=== PATIENT | male | born 1975 | race Caucasian/White ===

== ENCOUNTER 2017-09-16 21:01 | Inpatient (IN) | payer SELFPAY ==
[~2017-09-16] VITALS: Ht 182.8 cm; Wt 71.3 kg
--- NOTE | ~2017-09-16 | ST ---
[place], [place] EXERCISE STRESS TEST REPORT NAME: [facility]SSAINT [id number] UNIT #: [id number] ROOM: 427 DOCTOR: OUMAR COLMENARES,MARTINA BIRTHDATE: [birth year] DOS: 09/17/2017 LEXISCAN STRESS TEST REASON FOR TEST: Chest pain. PHYSICAL EXAMINATION NECK: Supple. LUNGS: Clear anteriorly. HEART: Regular rhythm. PROTOCOL: Lexiscan protocol. Maximum heart rate ____. Peak blood pressure 120/62. SYMPTOMS: The patient developed mild chest pain, resolved. EKG: Resting EKG showed sinus rhythm. Stress EKG showed no ischemia, no arrhythmias. CONCLUSION: Clinically, the patient had a mild chest pain, resolved. EKG nonischemic. POST-STRESS COMPLICATIONS: None. The patient received a total of 0.4 mg Lexiscan. MARTINA OSEGUERA MD CM:STRESS:EXERCISE STRESS TEST REPORT [id number] MARTINA OSEGUERA MD
--- NOTE | ~2017-09-16 | CON ---
[place], [place] REPORT OF CONSULTATION NAME: CALLY TOUSSAINT UNIT #: [id number] ROOM: 427 DOCTOR: MARTINA OSEGUERA MD BIRTHDATE: [birth year] DOS: 09/17/2017 REASON FOR CONSULTATION: Chest pain. CLINICAL HISTORY: The patient a 41-year-old gentleman with history of coronary artery disease, history of DVT, history of multiple stents, who was admitted for chest pain. Apparently, the patient has history of heart attack x 3, previous cardiac stents, the last stent was around March 2017 in [place] and reports not available. Apparently, the patient came from [place] all the way to [place] by "walking along with his dog." He has not been taking any of his medications for a few months. He complained of midsternal chest pain, intermittent on and off, more at rest than exertion. No radiation, no associated nausea, diaphoresis, or shortness of breath. The pain is intermittent and relieves on its own. No associated shortness of breath or diaphoresis. He is also complaining of some right knee and left wrist pain and his concerned about the DVT due to his history of DVTs. No fever and chills. No nausea, vomiting, diarrhea. No bladder or bowel symptoms. No cough or hemoptysis. The Cardiology is consulted for further recommendations. He was scheduled for a stress test today due to the history of coronary artery disease and his history of previous stents. REVIEW OF SYSTEMS: Review of the 10 systems negative except as mentioned above. PAST MEDICAL HISTORY: 1. Coronary artery disease, history of cardiac stent in 2014, cardiac stent in 2015, cardiac stent in March 2017 at [facility] in [place], [place]. Reports not available. 2. History of DVT with IVC filter per patient. 3. Hypertension. PAST SURGICAL HISTORY: History of right knee surgery long time ago, history of cardiac stents. ALLERGIES: THE PATIENT IS ALLERGIC TO PENICILLIN. SOCIAL HISTORY: The patient does smoke about a pack a day, but does not drink, does not use illicit drugs. FAMILY HISTORY: Father from blood clots in his 40s. Mother had a cancer and . HOME MEDICATIONS: Currently, the patient not take any home medications. PHYSICAL EXAMINATION: VITAL SIGNS: Blood pressure 110/64, pulse ____, respiratory rate is 14. GENERAL: Alert, comfortable, in no acute distress. HEENT: Pupils are round and equal. No jaundice. NECK: Supple, no distended neck veins, no carotid bruit. CHEST: Symmetrical, nontender. LUNGS: Clear to auscultation bilaterally. [place], [place] REPORT OF CONSULTATION NAME: BREANACALLY Mccartney UNIT #: [id number] ROOM: [facility] DOCTOR: OUMAR COLMENARES,ANA ROSAVictorino BIRTHDATE: [birth year] HEART: Regular rhythm, no S3, no palpable thrills. ABDOMEN: Benign, nontender. Bowel sounds normal. EXTREMITIES: Showed no edema. Distal pulses palpable. SKIN: Warm and dry. No cyanosis, no clubbing. RECTAL: Deferred. GENITOURINARY: Deferred. NEUROLOGIC: The patient is alert, oriented. No focal neurologic deficit. MUSCULOSKELETAL: No joint tenderness. The patient had mild tenderness in the right knee. REVIEW OF THE DIAGNOSTIC TESTS: EKG normal sinus rhythm, no acute ST changes. Pertinent labs include hemoglobin at the time of admission was 12.6, today was 13.2, platelets are 292,000. Potassium 3.6, creatinine 0.82 and cardiac troponins are negative. Total cholesterol 215, LDL 149, HDL 35. TSH 2.3, free T4 1.0. Vitamin D, B12, and folic acid levels are normal. IMPRESSION: 1. Chest pain, atypical, myocardial infarction ruled out. 2. History of coronary artery disease, status post multiple stents, the recent stent was in March 2017, details unknown. 3. History of deep venous thrombosis. 4. Mild anemia, stable. 5. History of hypertension, stable. 6. Tobacco smoking. 7. Dyslipidemia. RECOMMENDATIONS: He was scheduled for Lexiscan stress today. I would recommend aspirin 81 mg once daily and low-dose beta blockers, metoprolol 25 mg once daily and also statins, on Zocor 40 mg once daily. I would recommend a social service consult to help him with the placement and also medications. If the stress test is unremarkable, Cardiology will sign off. Medication compliance and risk factor modification to quit smoking was discussed with the patient. His DVT is over a year ago and so I see no indication for any oral anticoagulation at this time. [place], [place] REPORT OF CONSULTATION NAME: CALLY TOUSSAINT UNIT #: [id number] ROOM: 427 DOCTOR: OUMAR COLMENARES,MARTINA BIRTHDATE: [birth year] MARTINA OSEGUERA MD CM:CONSTR:REPORT OF CONSULTATION 1231 09/18/17 0153 interface
--- NOTE | ~2017-09-16 | CON ---
[place], [place] REPORT OF CONSULTATION NAME: CALLY TOUSSAINT [id number] UNIT #: [id number] ROOM: 427 DOCTOR: CORNELIA MCMANUS DPM BIRTHDATE: [birth year] DOS: 09/17/2017 PODIATRY CONSULT SUBJECTIVE: This 41-year-old male is seen as consulted for evaluation of both feet. The patient apparently has been on his feet quite a bit lately. He started walking back to [place] from [place]. He sustained blisters on the bottom of both feet and at the fifth toes bilaterally. He states since he has been off his feet for a day or two, the blisters are resolving nicely. He has very little discomfort in his feet, some little sensitivity when he bears weight. Denies any trauma or injury. The patient has a history of coronary artery disease status post stent placement. He also has a history of DVT. He denies being diabetic. Denies any history of foot surgeries. PAST MEDICAL HISTORY: Positive for coronary artery disease, DVT, hypertension, arthritis of his right knee, recent left wrist injury, history of GA. ALLERGIES: PENICILLIN. CURRENT MEDICATIONS: Include Lovenox, Zofran, Dulcolax, [place] and aspirin. OBJECTIVE: Upon lower extremity physical examination, pedal pulses are palpable. There is no edema appreciated bilaterally. Negative Homans sign noted bilaterally. Skin temp is warm. CFT is less than 2 seconds to all digits. Sensation is grossly intact and symmetrical. Plantar surface of both feet in the area of the second, third and fourth metatarsal has some dry peeling skin and what appears to be an old blister. At this time also the plantar distal portion of both fifth toes appear the same way. There is no open area or break in the skin noted at this time. There is no edema or erythema. No drainage or malodor. No active blisters. No erythema or signs of infection. ASSESSMENT: History of blisters both feet that are improving nicely at this time. History of deep venous thrombosis. PLAN: Consult is performed. I discussed with the patient the blisters are resolved at this time. There are no open areas on either foot. There are no signs of infection. At this time, just recommend an [id number] lotion to his feet on a daily basis. Discussed about wearing proper shoe gear with ambulation. No wound care is needed as there are no open areas and we will follow up with the patient as needed. Thank you for the opportunity to take part in care of this patient. [place], [place] REPORT OF CONSULTATION NAME: CALLY TOUSSAINT UNIT #: [id number] ROOM: [facility] DOCTOR: CORNELIA MCMANUS DPM BIRTHDATE: [birth year] CORNELIA MCMANUS DPM CM:CONSTR:REPORT OF CONSULTATION 1145 09/18/17 0039 interface
[~2017-09-16 21:01] MED LIST: ANAPROX DS550 MG PO; DAYPRO600 M1 PO; DOXYCYCLINE MO100 MG PO; KEFLEX500 MG PO; MEDROL DOSEPAK4 MG PO; ROBAXIN750 MG PO; SKELAXIN800 MG PO; TRAMADOL HCL50 MG PO; VICODIN 5/500 505 MG PO; VICODIN 500 MG-1 TAB PO; VICODIN ES 7501 TAB PO
[2017-09-16 21:02] VITALS: BP 112/70
[2017-09-16 21:35] LABS: BASO # 0.1 10*3/uL (0.0-0.1); BASO % 0.7 % (0.0-1.0); EOS # 0.4 10*3/uL (0.0-0.4); EOS % 3.1 % (1.0-4.0); HEMATOCRIT 38.8 % (42.0-52.0); HEMOGLOBIN 12.6 g/dl (14.0-18.0); LYMPH # 3.2 10*3/uL (1.3-4.4); LYMPH % 27.6 % (27.0-41.0); MEAN CELL VOLUME 86.8 fl (80.0-94.0); MEAN CORPUSCULAR HGB 28.2 pg (27.0-31.0); MEAN CORPUSCULAR HGB CONC 32.5 g/dl (33.0-37.0); MEAN PLATELET VOLUME 8.8 fl (9.6-12.3); MONO # 0.7 10*3/uL (0.1-1.0); MONO % 6.4 % (3.0-9.0); NEUT # 7.1 10*3/uL (2.3-7.9); NEUT % 61.9 % (47.0-73.0); PLATELET COUNT AUTOMATED 277 10*3/uL (130-400); RED BLOOD COUNT 4.47 10*6/uL (4.50-5.90); RED CELL DISTRI WIDTH 13.6 % (0-14.5); WHITE BLOOD COUNT 11.4 10*3/uL (4.8-10.8)
[2017-09-16 21:46] LABS: INTERNATIONAL NORM RATIO 0.9 (2.0-3.5)
[2017-09-16 21:53] LABS: ALBUMIN 3.6 gm/dl (3.1-4.5); ALKALINE PHOSPHATASE 88 U/L (45-117); BUN 12 mg/dl (7-24); CHLORIDE 106 mmol/L (98-107); CREATININE 0.89 mg/dL (0.70-1.30); POTASSIUM 3.7 mmol/L (3.5-5.1); SGOT/AST 12 IU/L (3-35); SGPT/ALT 18 U/L (12-78); SODIUM 141 mmol/L (136-145); TOTAL PROTEIN 6.8 gm/dL (6.4-8.2)
[2017-09-16 21:54] LABS: TROPONIN I < 0.015 ng/ml (<0.045)
[2017-09-16 22:03] VITALS: BP 119/78
[2017-09-16 23:28] VITALS: BP 120/68
[2017-09-16 23:37] VITALS: BP 124/80
[2017-09-17 07:47] LABS: BASO # 0.1 10*3/uL (0.0-0.1); BASO % 0.8 % (0.0-1.0); EOS # 0.3 10*3/uL (0.0-0.4); EOS % 4.3 % (1.0-4.0); HEMATOCRIT 42.2 % (42.0-52.0); HEMOGLOBIN 13.2 g/dl (14.0-18.0); LYMPH # 2.2 10*3/uL (1.3-4.4); LYMPH % 28.5 % (27.0-41.0); MEAN CELL VOLUME 88.3 fl (80.0-94.0); MEAN CORPUSCULAR HGB 27.6 pg (27.0-31.0); MEAN CORPUSCULAR HGB CONC 31.3 g/dl (33.0-37.0); MEAN PLATELET VOLUME 9.5 fl (9.6-12.3); MONO # 0.6 10*3/uL (0.1-1.0); MONO % 7.7 % (3.0-9.0); NEUT # 4.6 10*3/uL (2.3-7.9); NEUT % 58.4 % (47.0-73.0); PLATELET COUNT AUTOMATED 292 10*3/uL (130-400); RED BLOOD COUNT 4.78 10*6/uL (4.50-5.90); RED CELL DISTRI WIDTH 13.8 % (0-14.5); WHITE BLOOD COUNT 7.8 10*3/uL (4.8-10.8)
[2017-09-17 08:00] VITALS: BP 123/72
[2017-09-17 08:18] LABS: BUN 14 mg/dl (7-24); CHLORIDE 109 mmol/L (98-107); CHOLESTEROL 215 mg/dL (<200); CREATININE 0.82 mg/dL (0.70-1.30); FREE T4 1.04 ng/dl (0.76-1.46); HDL CHOLESTEROL 35 mg/dl (40-60); LDL CHOLESTEROL 149 mg/dL (9-159); POTASSIUM 3.6 mmol/L (3.5-5.1); SODIUM 142 mmol/L (136-145); TRIGLYCERIDES 156 mg/dl (<150); VLDL CHOLESTEROL 31 mg/dL (6-40)
[2017-09-17 08:52] LABS: VITAMIN D, 25-HYDROXY 40.4 ng/mL (30-100)
[2017-09-17 12:00] VITALS: BP 131/71
[2017-09-17 16:00] VITALS: BP 122/64
[2017-09-17 20:00] VITALS: BP 108/66
[2017-09-18] VITALS: BP 110/62
[2017-09-18 07:03] LABS: BASO # 0.1 10*3/uL (0.0-0.1); BASO % 1.2 % (0.0-1.0); EOS # 0.4 10*3/uL (0.0-0.4); EOS % 5.8 % (1.0-4.0); HEMATOCRIT 42.9 % (42.0-52.0); HEMOGLOBIN 13.2 g/dl (14.0-18.0); LYMPH # 2.1 10*3/uL (1.3-4.4); LYMPH % 31.1 % (27.0-41.0); MEAN CELL VOLUME 90.5 fl (80.0-94.0); MEAN CORPUSCULAR HGB 27.8 pg (27.0-31.0); MEAN CORPUSCULAR HGB CONC 30.8 g/dl (33.0-37.0); MEAN PLATELET VOLUME 9.3 fl (9.6-12.3); MONO # 0.5 10*3/uL (0.1-1.0); NEUT # 3.6 10*3/uL (2.3-7.9); NEUT % 53.8 % (47.0-73.0); PLATELET COUNT AUTOMATED 284 10*3/uL (130-400); RED BLOOD COUNT 4.74 10*6/uL (4.50-5.90); RED CELL DISTRI WIDTH 13.7 % (0-14.5); WHITE BLOOD COUNT 6.8 10*3/uL (4.8-10.8)
[2017-09-18 07:28] LABS: ALBUMIN 3.2 gm/dl (3.1-4.5); ALKALINE PHOSPHATASE 75 U/L (45-117); BUN 16 mg/dl (7-24); CHLORIDE 107 mmol/L (98-107); CREATININE 0.94 mg/dL (0.70-1.30); POTASSIUM 4.3 mmol/L (3.5-5.1); SGOT/AST 8 IU/L (3-35); SGPT/ALT 14 U/L (12-78); SODIUM 141 mmol/L (136-145); TOTAL PROTEIN 6.2 gm/dL (6.4-8.2)
[2017-09-18 08:00] VITALS: BP 112/67
[2017-09-18] MEDS ORDERED: SIMVASTATIN40 MG PO (10:41)
[2017-09-18] MEDS ORDERED: LISINOPRIL2.5 MG PO (10:41)
[2017-09-18] MEDS ORDERED: CLOPIDOGREL75 MG PO (10:41)
[2017-09-18] MEDS ORDERED: KNEE SUPPORT1 EACH MC (10:41)
[2017-09-18] MEDS ORDERED: ASPIRIN ADULT L81 M2 PO (10:41)
[2017-09-18] MEDS ORDERED: METOPROLOL SUCC25 M2 PO (10:41)
[2017-09-18 12:00] VITALS: BP 115/50
== END 2017-09-18 14:10 | disposition home or self-care (01) | DRG 880 ==
LOC: ED 21:01 → EDHOLD 22:34 → 4E 22:34
PROVIDERS: Family Medicine; Internal Medicine; Student in an Organized Health Care Education/Training Program
PROC: 4A02XM4 Measurement of Cardiac Total Activity, External Approach (ICD-10-PCS; principal; 2017-09-17)
PROC: 3E073KZ Introduction of Other Diagnostic Substance into Coronary Artery, Percutaneous Approach (ICD-10-PCS; principal; 2017-09-17)
DX: F41.9 Anxiety disorder, unspecified (principal); E87.8 Other disorders of electrolyte and fluid balance, not elsewhere classified; D68.59 Other primary thrombophilia; E88.09 Other disorders of plasma-protein metabolism, not elsewhere classified; I50.22 Chronic systolic (congestive) heart failure; I11.0 Hypertensive heart disease with heart failure; I25.10 Atherosclerotic heart disease of native coronary artery without angina pectoris; D64.9 Anemia, unspecified; D72.829 Elevated white blood cell count, unspecified; E78.5 Hyperlipidemia, unspecified; E78.1 Pure hyperglyceridemia; M13.861 Other specified arthritis, right knee; Z72.0 Tobacco use; Z95.5 Presence of coronary angioplasty implant and graft; I25.2 Old myocardial infarction; Z86.718 Personal history of other venous thrombosis and embolism; Z88.0 Allergy status to penicillin; Z90.89 Acquired absence of other organs; Z71.6 Tobacco abuse counseling; Z80.8 Family history of malignant neoplasm of other organs or systems; Z84.89 Family history of other specified conditions; Z91.14 Patient's other noncompliance with medication regimen

== ENCOUNTER 2017-12-11 11:39 | Emergency (ER) | payer OTHER ==
[~2017-12-11] VITALS: Ht 182.8 cm; Wt 90.7 kg
--- NOTE | ~2017-12-11 | EKG ---
[place], [place] ELECTROCARDIOGRAM REPORT NAME: CALLY TOUSSAINT UNIT #: [id number] ROOM: DOCTOR: EPIPHANY DRAFT REPORT BIRTHDATE: [birth year] [facility] Test Date: 2017-12-11 Test Time: 12:17:33 Pat Name: CALLY TOUSSAINT Department: ER Room: Gender: M Green Feed Attendant: Wellington England : 1975 Requested By: HÉCTOR PEÑA Order Number: [id number] Reading MD: Winsome Maddox MD Measurements Intervals [place] Rate: 78 P: 58 PA: 187 QRS: 70 QRSD: 92 T: -12 QT: 421 QTc: 480 Interpretive Statements Sinus rhythm Borderline ST elevation, anterior leads Electronically Signed On 12-12-2017 12:26:11 PDT by Winsome Maddox MD CM:EKGRPT:ELECTROCARDIOGRAM REPORT 1217 1226 HÉCTOR TRIPATHI DRAFT REPORT HÉCTOR PEÑA MD
[~2017-12-11 11:39] MED LIST changes: +ASPIRIN ADULT L81 M2 PO; +CLOPIDOGREL75 MG PO; +KNEE SUPPORT1 EACH MC; +LISINOPRIL2.5 MG PO; +METOPROLOL SUCC25 M2 PO; +SIMVASTATIN40 MG PO
[2017-12-11 12:17] LABS: BASO # 0.1 10*3/uL (0.0-0.1); EOS # 0.5 10*3/uL (0.0-0.4); EOS % 5.5 % (1.0-4.0); HEMATOCRIT 39.3 % (42.0-52.0); LYMPH # 2.4 10*3/uL (1.3-4.4); LYMPH % 28.5 % (27.0-41.0); MEAN CELL VOLUME 87.5 fl (80.0-94.0); MEAN CORPUSCULAR HGB CONC 33.1 g/dl (33.0-37.0); MEAN PLATELET VOLUME 9.4 fl (9.6-12.3); MONO # 0.6 10*3/uL (0.1-1.0); MONO % 6.9 % (3.0-9.0); NEUT # 4.8 10*3/uL (2.3-7.9); NEUT % 57.6 % (47.0-73.0); PLATELET COUNT AUTOMATED 296 10*3/uL (130-400); RED BLOOD COUNT 4.49 10*6/uL (4.50-5.90); RED CELL DISTRI WIDTH 13.2 % (0-14.5); WHITE BLOOD COUNT 8.3 10*3/uL (4.8-10.8)
[2017-12-11 12:25] LABS: ACT PARTIAL THROMBO TIME 22.7 SECONDS (20.8-31.5); INTERNATIONAL NORM RATIO 0.9 (2.0-3.5)
[2017-12-11 12:32] LABS: ALBUMIN 3.4 gm/dl (3.1-4.5); ALKALINE PHOSPHATASE 80 U/L (45-117); BUN 15 mg/dl (7-24); CHLORIDE 107 mmol/L (98-107); POTASSIUM 3.8 mmol/L (3.5-5.1); SGOT/AST 28 IU/L (3-35); SGPT/ALT 32 U/L (12-78); SODIUM 139 mmol/L (136-145); TOTAL PROTEIN 6.7 gm/dL (6.4-8.2)
[2017-12-11 12:34] LABS: TROPONIN I < 0.015 ng/ml (<0.045)
[2017-12-11] MEDS ORDERED: CLOPIDOGREL75 MG PO (13:08)
[2017-12-11] MEDS ORDERED: SIMVASTATIN40 MG PO (13:08)
[2017-12-11] MEDS ORDERED: METOPROLOL SUCC25 M2 PO (13:08)
[2017-12-11] MEDS ORDERED: LISINOPRIL2.5 MG PO (13:08)
[2017-12-11] MEDS ORDERED: ASPIRIN ADULT L81 M2 PO (13:08)
== END 2017-12-11 14:29 | disposition home or self-care (01) ==
LOC: ED 11:39
PROVIDERS: Emergency Medicine
DX: M79.89 Other specified soft tissue disorders (principal); R07.89 Other chest pain; I11.0 Hypertensive heart disease with heart failure; I50.9 Heart failure, unspecified; I25.2 Old myocardial infarction; E78.1 Pure hyperglyceridemia; I10 Essential (primary) hypertension; I25.10 Atherosclerotic heart disease of native coronary artery without angina pectoris; F17.210 Nicotine dependence, cigarettes, uncomplicated; Z98.890 Other specified postprocedural states; Z86.718 Personal history of other venous thrombosis and embolism; Z79.899 Other long term (current) drug therapy; Z88.0 Allergy status to penicillin

== ENCOUNTER 2017-12-20 10:47 | Emergency (ER) | payer OTHER ==
[~2017-12-20] VITALS: Ht 182.8 cm; Wt 90.7 kg
== END 2017-12-20 11:17 | disposition home or self-care (01) ==
LOC: ED 10:47
DX: G89.29 Other chronic pain (principal); M25.561 Pain in right knee; I11.0 Hypertensive heart disease with heart failure; I50.9 Heart failure, unspecified; M25.511 Pain in right shoulder; M25.532 Pain in left wrist; I25.10 Atherosclerotic heart disease of native coronary artery without angina pectoris; E78.1 Pure hyperglyceridemia; I25.2 Old myocardial infarction; F17.210 Nicotine dependence, cigarettes, uncomplicated; Z88.0 Allergy status to penicillin; Z79.82 Long term (current) use of aspirin; Z79.899 Other long term (current) drug therapy

== ENCOUNTER → 2017-12-21 | Outpatient (CLI) | payer OTHER ==
[~2017-12-21] MED LIST changes: +ASPIRIN ADULT L81 M1 PO; +NEURONTIN100 MG PO; +NICOTROL10 MG INH; +SUBOXONE 8 MG-1 EACH SL; +ZOCOR40 MG PO
== END | disposition home or self-care (01) ==
LOC: RESCLI 09:25
DX: M25.511 Pain in right shoulder (principal); I25.119 Atherosclerotic heart disease of native coronary artery with unspecified angina pectoris; G89.29 Other chronic pain; M17.31 Unilateral post-traumatic osteoarthritis, right knee; F17.200 Nicotine dependence, unspecified, uncomplicated; S69.92XD Unspecified injury of left wrist, hand and finger(s), subsequent encounter; X58.XXXD Exposure to other specified factors, subsequent encounter

== ENCOUNTER → 2018-01-27 | Outpatient (CLI) | payer OTHER | END | disposition home or self-care (01) | LOC: RESCLI 08:08 | DX: I25.119 Atherosclerotic heart disease of native coronary artery with unspecified angina pectoris (principal); M17.11 Unilateral primary osteoarthritis, right knee; S69.92XD Unspecified injury of left wrist, hand and finger(s), subsequent encounter; M75.42 Impingement syndrome of left shoulder; M87.039 Idiopathic aseptic necrosis of unspecified carpus; F17.200 Nicotine dependence, unspecified, uncomplicated; Z88.0 Allergy status to penicillin ==

== ENCOUNTER 2018-02-15 09:00 | Inpatient (IN) | payer OTHER ==
[~2018-02-15] VITALS: Ht 182.8 cm; Wt 94.3 kg
--- NOTE | ~2018-02-15 | EKG ---
[place], [place] ELECTROCARDIOGRAM REPORT NAME: CALLY TOUSSAINT UNIT #: [id number] ROOM: 411 DOCTOR: DEUCE DRAFT REPORT BIRTHDATE: [birth year] [facility] Test Date: 2018-02-15 Test Time: 12:03:37 Pat Name: CALLY TOUSSAINT Department: Room: 411 Gender: M Traffic Analysis Technician: Eli Stacy : 1975 Requested By: LWE JAQUEZ Order Number: [id number] Reading MD: Tavon Harman MD Measurements Intervals [place] Rate: 70 P: 42 DC: 178 QRS: 40 QRSD: 97 T: -40 QT: 415 QTc: 448 Interpretive Statements Sinus rhythm Inferoposterior infarct, age indeterminate Compared to ECG 12/11/2017 12:17:33 No significant change Electronically Signed On 02-15-2018 21:17:28 PST by Tavon Harman MD CM:EKGRPT:ELECTROCARDIOGRAM REPORT 1203 16 LEW NEVILLE DRAFT REPORT LEW JAQUEZ DO
--- NOTE | ~2018-02-15 | EKG ---
[place], [place] ELECTROCARDIOGRAM REPORT NAME: CALLY TOUSSAINT UNIT #: [id number] ROOM: 411 DOCTOR: DEUCE DRAFT REPORT BIRTHDATE: [birth year] [facility] Test Date: 2018-02-15 Test Time: 09:02:32 Pat Name: CALLY TOUSSAINT Department: Room: 411 Gender: M Paper Bag Making Machinist: Eli Stacy : 1975 Requested By: LEW JAQUEZ Order Number: [id number] Reading MD: Tavon Harman MD Measurements Intervals [place] Rate: 84 P: 60 DE: 165 QRS: 56 QRSD: 104 T: -59 QT: 389 QTc: 460 Interpretive Statements Sinus rhythm Inferior infarct, age indeterminate Compared to ECG 12/11/2017 12:17:33 Myocardial infarct finding now present ST (T wave) deviation still present Electronically Signed On 02-15-2018 21:14:11 PST by Tavon Harman MD CM:EKGRPT:ELECTROCARDIOGRAM REPORT 1 13 LEW NEVILLE DRAFT REPORT LEW JAQUEZ DO
--- NOTE | ~2018-02-15 | EKG ---
[place], [place] ELECTROCARDIOGRAM REPORT NAME: CALLY TOUSSAINT UNIT #: [id number] ROOM: 411 DOCTOR: DEUCE DRAFT REPORT BIRTHDATE: [birth year] [facility] Test Date: 2018-02-15 Test Time: 15:18:02 Pat Name: CALLY TOUSSAINT Department: Room: 411 Gender: M Literature Teacher: EKG.PA : 1975 Requested By: LEW JAQUEZ Order Number: [id number] Reading MD: Tavon Harman MD Measurements Intervals [place] Rate: 73 P: 47 [place]: 199 QRS: 45 QRSD: 92 T: -54 QT: 395 QTc: 436 Interpretive Statements Sinus rhythm Inferior infarct, age indeterminate Posterior infarct, old Compared to ECG 12/11/2017 12:17:33 No significant change Electronically Signed On 02-15-2018 21:27:19 PST by Tavon Harman MD CM:EKGRPT:ELECTROCARDIOGRAM REPORT 26 LEW NEVILLE DRAFT REPORT LEW JAQUEZ DO
[~2018-02-15 09:00] MED LIST changes: -ASPIRIN ADULT L81 M1 PO; -NEURONTIN100 MG PO; -NICOTROL10 MG INH; -SUBOXONE 8 MG-1 EACH SL; -ZOCOR40 MG PO
[2018-02-15 09:08] VITALS: BP 109/72
[2018-02-15 09:13] LABS: BASO # 0.1 10*3/uL (0.0-0.1); EOS # 0.3 10*3/uL (0.0-0.4); EOS % 4.1 % (1.0-4.0); HEMATOCRIT 43.8 % (42.0-52.0); HEMOGLOBIN 14.6 g/dl (14.0-18.0); LYMPH # 1.9 10*3/uL (1.3-4.4); LYMPH % 22.5 % (27.0-41.0); MEAN CELL VOLUME 86.9 fl (80.0-94.0); MEAN CORPUSCULAR HGB CONC 33.3 g/dl (33.0-37.0); MEAN PLATELET VOLUME 9.3 fl (9.6-12.3); MONO # 0.5 10*3/uL (0.1-1.0); MONO % 6.5 % (3.0-9.0); NEUT # 5.5 10*3/uL (2.3-7.9); NEUT % 65.7 % (47.0-73.0); PLATELET COUNT AUTOMATED 316 10*3/uL (130-400); RED BLOOD COUNT 5.04 10*6/uL (4.50-5.90); RED CELL DISTRI WIDTH 13.2 % (0-14.5); WHITE BLOOD COUNT 8.3 10*3/uL (4.8-10.8)
[2018-02-15 09:22] LABS: ACT PARTIAL THROMBO TIME 20.5 SECONDS (20.8-31.5); INTERNATIONAL NORM RATIO 0.9 (2.0-3.5)
[2018-02-15 09:33] LABS: ALBUMIN 3.5 gm/dl (3.1-4.5); ALKALINE PHOSPHATASE 76 U/L (45-117); BUN 12 mg/dl (7-24); CHLORIDE 109 mmol/L (98-107); CREATININE 1.05 mg/dL (0.70-1.30); LIPASE 302 U/L (73-393); POTASSIUM 4.5 mmol/L (3.5-5.1); SGOT/AST 17 IU/L (3-35); SGPT/ALT 22 U/L (12-78); SODIUM 138 mmol/L (136-145); TOTAL PROTEIN 7.4 gm/dL (6.4-8.2)
[2018-02-15 09:35] VITALS: BP 101/63
[2018-02-15 10:15] VITALS: BP 109/73
[2018-02-15] MEDS ORDERED: ZOCOR40 MG PO (10:47)
[2018-02-15 11:00] VITALS: BP 133/73
[2018-02-15] MEDS ORDERED: ASPIRIN ADULT L81 M1 PO (14:33)
[2018-02-15] MEDS ORDERED: SUBOXONE 8 MG-1 EACH SL (14:34)
[2018-02-15] MEDS ORDERED: NEURONTIN100 MG PO (14:34)
[2018-02-15 16:00] VITALS: BP 156/70
[2018-02-15 20:00] VITALS: BP 105/58
[2018-02-16] VITALS: BP 120/73
[2018-02-16 06:48] LABS: BASO # 0.1 10*3/uL (0.0-0.1); BASO % 0.6 % (0.0-1.0); EOS # 0.6 10*3/uL (0.0-0.4); EOS % 4.1 % (1.0-4.0); HEMATOCRIT 41.1 % (42.0-52.0); HEMOGLOBIN 13.3 g/dl (14.0-18.0); LYMPH # 3.3 10*3/uL (1.3-4.4); LYMPH % 25.2 % (27.0-41.0); MEAN CELL VOLUME 89.2 fl (80.0-94.0); MEAN CORPUSCULAR HGB 28.9 pg (27.0-31.0); MEAN CORPUSCULAR HGB CONC 32.4 g/dl (33.0-37.0); MEAN PLATELET VOLUME 9.7 fl (9.6-12.3); MONO # 0.9 10*3/uL (0.1-1.0); MONO % 6.6 % (3.0-9.0); NEUT # 8.4 10*3/uL (2.3-7.9); NEUT % 63.2 % (47.0-73.0); PLATELET COUNT AUTOMATED 285 10*3/uL (130-400); RED BLOOD COUNT 4.61 10*6/uL (4.50-5.90); RED CELL DISTRI WIDTH 13.1 % (0-14.5); WHITE BLOOD COUNT 13.3 10*3/uL (4.8-10.8)
[2018-02-16 07:11] LABS: CHLORIDE 106 mmol/L (98-107); POTASSIUM 3.9 mmol/L (3.5-5.1); SODIUM 137 mmol/L (136-145)
[2018-02-16 07:36] LABS: ALBUMIN 3.6 gm/dl (3.1-4.5); ALKALINE PHOSPHATASE 74 U/L (45-117); BUN 18 mg/dl (7-24); CHOLESTEROL 153 mg/dL (<200); CREATININE 1.05 mg/dL (0.70-1.30); FREE T4 1.13 ng/dl (0.76-1.46); HDL CHOLESTEROL 31 mg/dl (40-60); LDL CHOLESTEROL 92 mg/dL (9-159); PHOSPHOROUS 4.5 mg/dL (2.5-4.9); SGOT/AST 13 IU/L (3-35); SGPT/ALT 18 U/L (12-78); TOTAL PROTEIN 6.7 gm/dL (6.4-8.2); TRIGLYCERIDES 150 mg/dl (<150); VLDL CHOLESTEROL 30 mg/dL (6-40)
[2018-02-16 07:40] LABS: VITAMIN D, 25-HYDROXY 32.2 ng/mL (30-100)
[2018-02-16 08:00] VITALS: BP 105/61
[2018-02-16 12:00] VITALS: BP 117/67
[2018-02-16] MEDS ORDERED: NICOTROL10 MG INH (16:04)
[2018-02-16] MEDS ORDERED: CLOPIDOGREL75 MG PO (16:04)
[2018-02-16] MEDS ORDERED: ASPIRIN ADULT L81 M1 PO (16:04)
[2018-02-16] MEDS ORDERED: ZOCOR40 MG PO (16:04)
[2018-02-16] MEDS ORDERED: LISINOPRIL2.5 MG PO (16:04)
[2018-02-16] MEDS ORDERED: METOPROLOL SUCC25 M2 PO (16:04)
[2018-02-16] MEDS ORDERED: NEURONTIN100 MG PO (16:04)
== END 2018-02-16 17:30 | disposition home or self-care (01) | DRG 206 ==
LOC: ED 09:00 → EDHOLD 09:53 → 4E 09:53
PROVIDERS: Emergency Medicine; Internal Medicine
DX: M94.0 Chondrocostal junction syndrome [Tietze] (principal); E87.3 Alkalosis; I50.22 Chronic systolic (congestive) heart failure; R74.8 Abnormal levels of other serum enzymes; D72.810 Lymphocytopenia; R79.82 Elevated C-reactive protein (CRP); K21.9 Gastro-esophageal reflux disease without esophagitis; F41.9 Anxiety disorder, unspecified; I25.119 Atherosclerotic heart disease of native coronary artery with unspecified angina pectoris; I11.0 Hypertensive heart disease with heart failure; E78.2 Mixed hyperlipidemia; G89.29 Other chronic pain; F17.210 Nicotine dependence, cigarettes, uncomplicated; M19.90 Unspecified osteoarthritis, unspecified site; R79.89 Other specified abnormal findings of blood chemistry; E66.3 Overweight; E87.8 Other disorders of electrolyte and fluid balance, not elsewhere classified; M25.561 Pain in right knee; Z71.6 Tobacco abuse counseling; Z86.718 Personal history of other venous thrombosis and embolism; I25.2 Old myocardial infarction; Z95.5 Presence of coronary angioplasty implant and graft; Z80.9 Family history of malignant neoplasm, unspecified; Z84.89 Family history of other specified conditions; Z88.0 Allergy status to penicillin; Z91.040 Latex allergy status; Z91.018 Allergy to other foods; Z79.82 Long term (current) use of aspirin; Z79.899 Other long term (current) drug therapy; Z79.02 Long term (current) use of antithrombotics/antiplatelets; Z68.28 Body mass index [BMI] 28.0-28.9, adult

== ENCOUNTER 2018-04-11 18:53 | Inpatient (IN) | payer OTHER ==
[~2018-04-11] VITALS: Ht 182.8 cm; Wt 102.2 kg
--- NOTE | ~2018-04-11 | EKG ---
[place], [place] ELECTROCARDIOGRAM REPORT NAME: CALLY TOUSSAINT UNIT #: [id number] ROOM: 518 DOCTOR: DEUCE DRAFT REPORT BIRTHDATE: [birth year] [facility] Test Date: 2018-04-11 Test Time: 19:22:54 Pat Name: CALLY TOUSSAITN Department: Room: 518 Gender: M Lamp Shade Maker: Susy Braden : 1975 Requested By: LALO BECK Order Number: [id number] Reading MD: Winsome Maddox MD Measurements Intervals [place] Rate: 96 P: 33 [place]: 167 QRS: 23 QRSD: 96 T: -40 QT: 359 QTc: 454 Interpretive Statements Sinus rhythm Probable left atrial enlargement Possible Inferior infarct, age indeterminate Compared to ECG 02/15/2018 15:18:02 No significant changes Electronically Signed On 04-15-2018 9:33:34 PST by Winsome Maddox MD CM:EKGRPT:ELECTROCARDIOGRAM REPORT 21 LALO BECK EPIPHANY DRAFT REPORT LALO BECK
[2018-04-11 18:53] VITALS: BP 137/89
[~2018-04-11 18:53] MED LIST changes: +ASPIRIN ADULT L81 M1 PO; +NEURONTIN100 MG PO; +NICOTROL10 MG INH; +SUBOXONE 8 MG-1 EACH SL; +ZOCOR40 MG PO
[2018-04-11 19:36] LABS: HEMOGLOBIN 14.9 g/dl (14.0-18.0); MEAN CELL VOLUME 85.1 fl (80.0-94.0); MEAN CORPUSCULAR HGB 28.8 pg (27.0-31.0); MEAN CORPUSCULAR HGB CONC 33.9 g/dl (33.0-37.0); MEAN PLATELET VOLUME 9.3 fl (9.6-12.3); PLATELET COUNT AUTOMATED 246 10*3/uL (130-400); RED BLOOD COUNT 5.17 10*6/uL (4.50-5.90); WHITE BLOOD COUNT 19.6 10*3/uL (4.8-10.8)
[2018-04-11 19:54] LABS: ALBUMIN 3.7 gm/dl (3.1-4.5); ALKALINE PHOSPHATASE 89 U/L (45-117); BUN 14 mg/dl (7-24); CHLORIDE 104 mmol/L (98-107); CREATININE 1.25 mg/dL (0.70-1.30); LIPASE 132 U/L (73-393); POTASSIUM 3.7 mmol/L (3.5-5.1); SGOT/AST 12 IU/L (3-35); SGPT/ALT 22 U/L (12-78); SODIUM 136 mmol/L (136-145); TOTAL PROTEIN 7.8 gm/dL (6.4-8.2); TROPONIN I < 0.015 ng/ml (<0.045)
[2018-04-11 19:57] LABS: ATYPICAL LYMPHS 2 % (0-0); BASOPHILS 1 % (0-1); TOTAL CELLS COUNTED 100 #CELLS
[2018-04-11 19:58] LABS: PLATELET SUFFICIENCY NORMAL (NORMAL)
[2018-04-11 19:59] LABS: ACT PARTIAL THROMBO TIME 20.7 SECONDS (20.8-31.5)
--- NOTE | 2018-04-11 22:32 | NUR ---
PT SITTING UP IN BED. A&O X3, PLEASANT AND COOPERATIVE. MEDICATED PER EMAR. IV HEPARIN INFUSING AT 19.6 ML HR PER EMAR. C/O R GROIN PAIN 8 AT THIS TIME. RESP EASY AND NONLABORED ON RO0M AIR. EDUCATION ON DVTS GIVEN. VERBALIZED UNDERSTANDING.
[2018-04-11 23:09] VITALS: BP 122/78
[2018-04-11 23:40] VITALS: BP 120/71
--- NOTE | 2018-04-11 23:51 | NUR ---
MED REC UP TO DATE PER MED CLAIMS HX & PATIENT RECALL.
--- NOTE | 2018-04-12 00:33 | NUR ---
PO SUBOXONE ADMINISTERED PER ORDER. WILL MONITOR.
--- NOTE | 2018-04-12 02:17 | NUR ---
NICOTINE PATCH APPLIED TO L UPPER ARM.
[2018-04-12 02:30] VITALS: BP 110/65
[2018-04-12 03:58] LABS: BASO # 0.1 10*3/uL (0.0-0.1); BASO % 0.5 % (0.0-1.0); EOS # 0.8 10*3/uL (0.0-0.4); HEMATOCRIT 40.5 % (42.0-52.0); HEMOGLOBIN 13.4 g/dl (14.0-18.0); LYMPH # 4.4 10*3/uL (1.3-4.4); LYMPH % 26.4 % (27.0-41.0); MEAN CELL VOLUME 86.4 fl (80.0-94.0); MEAN CORPUSCULAR HGB 28.6 pg (27.0-31.0); MEAN CORPUSCULAR HGB CONC 33.1 g/dl (33.0-37.0); MEAN PLATELET VOLUME 9.5 fl (9.6-12.3); MONO # 1.3 10*3/uL (0.1-1.0); NEUT % 59.7 % (47.0-73.0); PLATELET COUNT AUTOMATED 230 10*3/uL (130-400); RED BLOOD COUNT 4.69 10*6/uL (4.50-5.90); RED CELL DISTRI WIDTH 13.1 % (0-14.5); WHITE BLOOD COUNT 16.7 10*3/uL (4.8-10.8)
[2018-04-12 04:21] LABS: ALBUMIN 3.2 gm/dl (3.1-4.5); ALKALINE PHOSPHATASE 76 U/L (45-117); BUN 17 mg/dl (7-24); CHLORIDE 106 mmol/L (98-107); CHOLESTEROL 181 mg/dL (<200); CREATININE 1.09 mg/dL (0.70-1.30); HDL CHOLESTEROL 33 mg/dl (40-60); LDL CHOLESTEROL 119 mg/dL (9-159); POTASSIUM 3.9 mmol/L (3.5-5.1); SGOT/AST 12 IU/L (3-35); SGPT/ALT 19 U/L (12-78); SODIUM 138 mmol/L (136-145); TOTAL PROTEIN 6.9 gm/dL (6.4-8.2); TRIGLYCERIDES 147 mg/dl (<150); VLDL CHOLESTEROL 29 mg/dL (6-40)
--- NOTE | 2018-04-12 05:15 | NUR ---
APTT 61.5. NO CHANGE PER HEPARIN PROTOCOL. RATE REMAINS 18U/KG/HR OR 19.6 ML/HR. NEW APTT ORDERED FOR 04/13/18 @ 0530.
--- NOTE | 2018-04-12 06:47 | NUR ---
PER , D/C HEPARIN PROTOCOL ORDER WAS DUE TO DUPLICATE ORDER. INSTRUCTED TO KEEP HEPARIN GTT INFUSING.
--- NOTE | 2018-04-12 10:42 | NUR ---
Crystalizer in to talk to patient. Patient states lives at HOME with ALONE. There are NO steps in the home. Physician: [facility]acy: [facility] Home health services: NONE Patient's level of ADLs: INDEPENDENT Patient has working utilities: YES DME: NONE Follow-up physician's appointment after d/c: WILL BE MADE BY HOSPITALIST NURSE DIRECTOR ON DISCHARGE Does patient want to access PORTAL?: NO Discharge plan PT STATES HE LIVES AT HOME ALONE AND IS INDEPENDENT IN CARE. DENIES ANY HOME NEEDS ON DISCHARGE. PT CAN BE DISCHARGED TO HOME WHEN MEDICALLY STABLE. STATES HE HAS A RIDE ON DISCHARGE. WILL CONTINUE TO FOLLOW.. RICHARD AREVALO
[2018-04-12 12:00] VITALS: BP 113/67
--- NOTE | 2018-04-12 15:35 | NUR ---
FAXED CLINICALS TO INSURANCE PER THEIR REQUEST.
[2018-04-12 16:00] VITALS: BP 117/65
--- NOTE | 2018-04-12 17:54 | NUR ---
PT REQUESTING TO HAVE DOCTOR LOOK AT HIS LEG. RT LEG IS MORE SWOLLEN THEN EARLIER IN THE DAY. PT STATES IT IS ALSO ROCK HARD TO TOUCH. WARM TO TOUCH. CALLED . SAID HE WOULD COME WHEN HE CAN.
[2018-04-12 20:00] VITALS: BP 110/74
--- NOTE | 2018-04-12 22:26 | NUR ---
PATIENT REQUESTED AND RECEIVED PO TYLENOL PER PRN ORDER FOR C/O PAIN IN R LEG RATD 09/21. WILL MONITOR EFFECTIVENESS. CALL LIGHT LEFT IN REACH.
[2018-04-13] VITALS: BP 112/68
--- NOTE | 2018-04-13 01:25 | NUR ---
NOTIFIED OF PATIENT'S C/O PAIN IN R LEG RATED 8/10. TOO SOON FOR TYLENOL PER PRN ORDER. NEW ORDER FOR MOTRIN TO FOLLOW.
--- NOTE | 2018-04-13 02:10 | NUR ---
PATIENT MEDICATED WITH PO MOTRIN PER PRN ORDER FOR C/O PAIN IN R LEG RATED 8/10. STATES EARLIER TYLENOL WAS EFFECTIVE BUT WORE OFF. PATIENT REQUESTING ICE TO PLACE ON LEG TO DECREASE SWELLING. ICE PROVIDED. RN EDUCATED PATIENT ABOUT USE OF ICE AND TO PUT ON/TAKE OFF IN 20 MINUTE INTERVALS. PT ADVISED NOT TO PLACE ICE DIRECTLY TO SKIN. WILL MONITOR. CALL LIGHT LEFT IN REACH.
--- NOTE | 2018-04-13 06:23 | NUR ---
PO SUBOXONE WAS RE-TIMED TO 0600 & 1800 TO BETTER MATCH PATIENT'S HOME SCHEDULE. PO SUBOXONE GIVEN AT THIS TIME. PATIENT RATING PAIN IN RLE 10. WILL MONITOR EFFECTIVENESS. CALL LIGHT LEFT IN REACH.
--- NOTE | 2018-04-13 06:46 | NUR ---
APTT COMING BACK 70.5. NO CHANGE TO BE MADE TO HEPARIN GTT PER PROTOCOL.
[2018-04-13 08:30] VITALS: BP 118/70
--- NOTE | 2018-04-13 08:30 | NUR ---
PT SITTING UP IN BED. RESP-EASY AND REGULAR. HEPARIN INFUSING WITH NO PRLBLEM. NO C/O AT THSI TIME. CALL LIGHT IN REACH. SEE SHIFT ASSESSMENT.
--- NOTE | 2018-04-13 11:05 | NUR ---
RESTING IN BED. NO C/;O AT THIS TIME. CALL RONNIE MEDINA.
--- NOTE | 2018-04-13 12:56 | NUR ---
CALLED DR. TORRES REGARDING PT STATING HE CAN TAKE MONITOR OFF. PER DR. TORRES OK TO DISCONTINUE MONITOR.
--- NOTE | 2018-04-13 13:00 | NUR ---
RESTING IN BED. NO C/O AT THIS TIME. HEPARIN INFUSING WITH NO PROBLEM. CALL LIGHT IN REACH.
[2018-04-13 15:08] LABS: ANTICARDIOLIPIN AB, IGG, QN <9 GPL U/mL (0-14); ANTICARDIOLIPIN AB, IGM, QN 13 MPL U/mL (0-12); CARDIOLIPIN AB IGA 161836 <9 APL U/mL (0-11)
[2018-04-13 16:00] VITALS: BP 135/65
--- NOTE | 2018-04-13 16:00 | NUR ---
RESTING IN BED. RESP-EASY AND REGULAR. NO C/O AT THIS TIME. CALL LIGHT IN REACH. SEE SHIFT ASSESSMENT
--- NOTE | 2018-04-13 17:52 | NUR ---
PT ESCORTED BACK TO ROOM FROM DOWNSTAIRS. PT WENT OUTSIDE TO SMOKE. PT DISCONNECTED HIS HEPARIN DRIP. PT WAS RECONNECTED AND ADVISED TO NOT TO LEAVE THE FLOOR. CALL LIGHT IN REACH. HEPARIN INFUSING.
--- NOTE | 2018-04-13 18:55 | NUR ---
TOLERATED ROUTINE SUBOXONE PER ORDER, SEE EMAR. NO C/O AT THSI TIME. CALL LIGHT IN REACH.
--- NOTE | 2018-04-13 19:30 | NUR ---
PATIENT IS AAOX3 WITH EASY AND REGULAR RESPERS ON ROOM AIR. ASSESSMENT IS COMPLETE WITH NO C/O OR S/S OF DISTRESS NOTED AT THIS TIME. PATIENT REMOVED IV IN LEFT WRIST BUT IV IN LEFT ARM IS INTACT AND ASYMPTOMATIC. BED IS LOW, LOCKED, AND CALL LIGHT IS WITHIN REACH. SEE SHIFT ASSESSMENT.
[2018-04-13 20:00] VITALS: BP 133/81
[2018-04-14] VITALS: BP 127/63
[2018-04-14 00:08] LABS: ANTI-THROMBIN III ANTIGEN 98 % (72-124); PROTEIN S, FREE 81 % (57-157); PROTEIN S, TOTAL 86 % (60-150)
[2018-04-14 08:00] VITALS: BP 146/85
[2018-04-14 11:10] LABS: PTT-LA 58.8 sec (0.0-51.9)
[2018-04-14] MEDS ORDERED: XARELTO1 EACH PO (11:41)
[2018-04-14 12:00] VITALS: BP 128/87
[2018-04-14 15:08] LABS: HEXAGONAL PHASE PHOSPHOLIPID 16 sec (0-11); PTT-LA MIX 51.7 sec (0.0-48.9)
[2018-04-14 16:00] VITALS: BP 117/66
--- NOTE | 2018-04-14 18:00 | NUR ---
Discharge instructions reviewed with patient/family. Patient receptive and verbalizes understanding. Follow-up care arranged. Written instructions given to patient/family. Patient ambulated from unit with all personal belongings. He was educated on new medications and follow up visit with Dr. Beck. WINSTON COLUNGA
[2018-04-15 08:14] LABS: LUPUS REFLEX INTERPRETATION Comment: (.)
[2018-04-15 10:24] LABS: INCUBRFX RFX
== END 2018-04-14 18:46 | disposition home or self-care (01) | DRG 300 ==
LOC: ED 18:53 → EDHOLD 22:29 → 5E 22:29
PROVIDERS: Family Medicine; Nurse Practitioner Family; ADMIT Internal Medicine
DX: I82.411 Acute embolism and thrombosis of right femoral vein (principal); R65.10 Systemic inflammatory response syndrome (SIRS) of non-infectious origin without acute organ dysfunction; D72.1 Eosinophilia; D72.810 Lymphocytopenia; D72.9 Disorder of white blood cells, unspecified; E78.5 Hyperlipidemia, unspecified; I82.431 Acute embolism and thrombosis of right popliteal vein; I82.441 Acute embolism and thrombosis of right tibial vein; G62.9 Polyneuropathy, unspecified; F17.210 Nicotine dependence, cigarettes, uncomplicated; J31.0 Chronic rhinitis; M25.561 Pain in right knee; M19.90 Unspecified osteoarthritis, unspecified site; I25.10 Atherosclerotic heart disease of native coronary artery without angina pectoris; I50.9 Heart failure, unspecified; G89.29 Other chronic pain; I11.0 Hypertensive heart disease with heart failure; Z95.5 Presence of coronary angioplasty implant and graft; Z72.89 Other problems related to lifestyle; Z80.8 Family history of malignant neoplasm of other organs or systems; I25.2 Old myocardial infarction; Z88.0 Allergy status to penicillin; Z71.6 Tobacco abuse counseling; Z80.1 Family history of malignant neoplasm of trachea, bronchus and lung

== ENCOUNTER → 2018-05-19 | Outpatient (CLI) | payer OTHER ==
[~2018-05-19] MED LIST changes: +XARELTO1 EACH PO
== END | disposition home or self-care (01) ==
LOC: MRI 05-18 15:00
DX: Z01.818 Encounter for other preprocedural examination (principal); M19.032 Primary osteoarthritis, left wrist; M87.08 Idiopathic aseptic necrosis of bone, other site; M65.88 Other synovitis and tenosynovitis, other site

== ENCOUNTER → 2018-07-25 | Outpatient (CLI) | payer OTHER ==
[2018-07-25 15:36] LABS: BASO # 0.1 10*3/uL (0.0-0.1); BASO % 0.7 % (0.0-1.0); EOS # 0.3 10*3/uL (0.0-0.4); EOS % 2.1 % (1.0-4.0); HEMATOCRIT 39.8 % (42.0-52.0); HEMOGLOBIN 13.2 g/dl (14.0-18.0); LYMPH # 2.1 10*3/uL (1.3-4.4); LYMPH % 17.7 % (27.0-41.0); MEAN CELL VOLUME 87.9 fl (80.0-94.0); MEAN CORPUSCULAR HGB 29.1 pg (27.0-31.0); MEAN CORPUSCULAR HGB CONC 33.2 g/dl (33.0-37.0); MEAN PLATELET VOLUME 9.9 fl (9.6-12.3); MONO # 0.8 10*3/uL (0.1-1.0); MONO % 6.3 % (3.0-9.0); NEUT # 8.7 10*3/uL (2.3-7.9); PLATELET COUNT AUTOMATED 250 10*3/uL (130-400); RED BLOOD COUNT 4.53 10*6/uL (4.50-5.90); RED CELL DISTRI WIDTH 14.2 % (0-14.5); WHITE BLOOD COUNT 11.9 10*3/uL (4.8-10.8)
[2018-07-25 16:08] LABS: ALBUMIN 3.8 gm/dl (3.1-4.5); ALKALINE PHOSPHATASE 81 U/L (45-117); BUN 20 mg/dl (7-24); CHLORIDE 111 mmol/L (98-107); POTASSIUM 4.1 mmol/L (3.5-5.1); SGOT/AST 37 IU/L (3-35); SGPT/ALT 25 U/L (12-78); SODIUM 141 mmol/L (136-145); TOTAL PROTEIN 7.2 gm/dL (6.4-8.2)
[2018-07-26 16:11] LABS: ANTICARDIOLIPIN AB, IGG, QN <9 GPL U/mL (0-14); ANTICARDIOLIPIN AB, IGM, QN 11 MPL U/mL (0-12); CARDIOLIPIN AB IGA 161836 <9 APL U/mL (0-11)
[2018-07-27 06:08] LABS: DILUTE PROTHROMBIN TIME 54.7 sec (0.0-55.0); DPT CONFIRM RATIO 0.95 Ratio (0.00-1.40); LUPUS DRVVT 99.1 sec (0.0-47.0); PROTEIN S-FUNCTIONAL 164525 88 % (63-140); PTT-LA 54.3 sec (0.0-51.9); THROMBIN TIME 15.8 sec (0.0-23.0)
[2018-07-27 07:10] LABS: HEXAGONAL PHASE PHOSPHOLIPID 10 sec (0-11); PTT-LA MIX 49.3 sec (0.0-48.9)
[2018-07-27 08:12] LABS: LUPUS REFLEX INTERPRETATION Comment: (.)
[2018-07-29 02:09] LABS: BETA-2 GLYCOPROTEIN I AB,IGA <9 (0-25); BETA-2 GLYCOPROTEIN I AB,IGG <9 (0-20); BETA-2 GLYCOPROTEIN I AB,IGM <9 (0-32)
[2018-07-29 16:07] LABS: HEXRFX RFX; PTTRFX RFX
== END | disposition home or self-care (01) ==
LOC: RESCLI 11:46
PROVIDERS: Student in an Organized Health Care Education/Training Program
DX: E78.5 Hyperlipidemia, unspecified (principal); I10 Essential (primary) hypertension; M12.561 Traumatic arthropathy, right knee; I82.511 Chronic embolism and thrombosis of right femoral vein; K21.9 Gastro-esophageal reflux disease without esophagitis; F17.200 Nicotine dependence, unspecified, uncomplicated

== ENCOUNTER 2018-12-12 12:12 | Emergency (ER) | payer OTHER ==
[~2018-12-12] VITALS: Ht 182.8 cm; Wt 104.3 kg
[2018-12-12 13:20] LABS: BASO # 0.1 10*3/uL (0.0-0.1); BASO % 0.6 % (0.0-1.0); EOS # 0.3 10*3/uL (0.0-0.4); EOS % 2.7 % (1.0-4.0); HEMATOCRIT 41.6 % (42.0-52.0); HEMOGLOBIN 13.5 g/dl (14.0-18.0); LYMPH % 15.7 % (27.0-41.0); MEAN CORPUSCULAR HGB 28.2 pg (27.0-31.0); MEAN CORPUSCULAR HGB CONC 32.5 g/dl (33.0-37.0); MEAN PLATELET VOLUME 9.8 fl (9.6-12.3); MONO # 0.5 10*3/uL (0.1-1.0); MONO % 4.3 % (3.0-9.0); NEUT # 9.5 10*3/uL (2.3-7.9); NEUT % 76.5 % (47.0-73.0); PLATELET COUNT AUTOMATED 284 10*3/uL (130-400); RED BLOOD COUNT 4.78 10*6/uL (4.50-5.90); WHITE BLOOD COUNT 12.5 10*3/uL (4.8-10.8)
[2018-12-12 13:31] LABS: ACT PARTIAL THROMBO TIME 23.2 SECONDS (20.0-32.1); INTERNATIONAL NORM RATIO 0.9 (2.0-3.5)
[2018-12-12 13:36] LABS: ALBUMIN 3.6 gm/dl (3.1-4.5); ALKALINE PHOSPHATASE 94 U/L (45-117); BUN 11 mg/dl (7-24); CHLORIDE 108 mmol/L (98-107); LIPASE 206 U/L (73-393); POTASSIUM 4.2 mmol/L (3.5-5.1); SGOT/AST 13 IU/L (3-35); SGPT/ALT 17 U/L (12-78); SODIUM 140 mmol/L (136-145); TOTAL PROTEIN 7.4 gm/dL (6.4-8.2); TROPONIN I < 0.015 ng/ml (<0.045)
[2018-12-12] MEDS ORDERED: DOXYCYCLINE100 M3 PO (14:26)
== END 2018-12-12 14:46 | disposition home or self-care (01) ==
LOC: ED 12:12
PROVIDERS: Emergency Medicine
DX: L03.115 Cellulitis of right lower limb (principal); I82.501 Chronic embolism and thrombosis of unspecified deep veins of right lower extremity; I25.10 Atherosclerotic heart disease of native coronary artery without angina pectoris; E78.5 Hyperlipidemia, unspecified; I11.0 Hypertensive heart disease with heart failure; I50.9 Heart failure, unspecified; I25.2 Old myocardial infarction; G89.29 Other chronic pain; G62.9 Polyneuropathy, unspecified; F17.210 Nicotine dependence, cigarettes, uncomplicated; Z88.0 Allergy status to penicillin; Z79.899 Other long term (current) drug therapy; Z79.82 Long term (current) use of aspirin

== ENCOUNTER 2019-01-16 10:44 | Emergency (ER) | payer OTHER ==
[~2019-01-16] VITALS: Ht 182.8 cm; Wt 108.9 kg
[~2019-01-16 10:44] MED LIST changes: +DOXYCYCLINE100 M3 PO
[2019-01-16 12:18] LABS: BASO # 0.1 10*3/uL (0.0-0.1); BASO % 0.7 % (0.0-1.0); EOS # 0.3 10*3/uL (0.0-0.4); EOS % 2.3 % (1.0-4.0); HEMATOCRIT 44.7 % (42.0-52.0); HEMOGLOBIN 14.5 g/dl (14.0-18.0); LYMPH # 2.2 10*3/uL (1.3-4.4); LYMPH % 15.8 % (27.0-41.0); MEAN CELL VOLUME 86.8 fl (80.0-94.0); MEAN CORPUSCULAR HGB 28.2 pg (27.0-31.0); MEAN CORPUSCULAR HGB CONC 32.4 g/dl (33.0-37.0); MEAN PLATELET VOLUME 9.7 fl (9.6-12.3); MONO # 0.6 10*3/uL (0.1-1.0); MONO % 4.3 % (3.0-9.0); NEUT # 10.6 10*3/uL (2.3-7.9); NEUT % 76.5 % (47.0-73.0); PLATELET COUNT AUTOMATED 295 10*3/uL (130-400); RED BLOOD COUNT 5.15 10*6/uL (4.50-5.90); RED CELL DISTRI WIDTH 13.2 % (0-14.5); WHITE BLOOD COUNT 13.8 10*3/uL (4.8-10.8)
[2019-01-16 12:28] LABS: BUN 11 mg/dl (7-24); CHLORIDE 108 mmol/L (98-107); CREATININE 0.91 mg/dL (0.70-1.30); SODIUM 139 mmol/L (136-145)
[2019-01-16 12:29] LABS: INTERNATIONAL NORM RATIO 1.1 (2.0-3.5)
[2019-01-16] MEDS ORDERED: KEFLEX250 MG PO (14:37)
[2019-01-16] MEDS ORDERED: KEFLEX500 M1 PO (14:38)
== END 2019-01-16 14:43 | disposition home or self-care (01) ==
LOC: ED 10:44
PROVIDERS: Nurse Practitioner
DX: L03.115 Cellulitis of right lower limb (principal); I25.2 Old myocardial infarction; I10 Essential (primary) hypertension; E78.00 Pure hypercholesterolemia, unspecified; Z86.718 Personal history of other venous thrombosis and embolism; F17.210 Nicotine dependence, cigarettes, uncomplicated; Z88.0 Allergy status to penicillin; Z79.899 Other long term (current) drug therapy; Z79.82 Long term (current) use of aspirin

== ENCOUNTER 2019-01-28 22:34 | Inpatient (IN) | payer OTHER ==
[~2019-01-28] VITALS: Ht 182.8 cm; Wt 101.9 kg
--- NOTE | ~2019-01-28 | EKG ---
[place], [place] ELECTROCARDIOGRAM REPORT NAME: CALLY TOUSSAINT UNIT #: [id number] ROOM: [facility] DOCTOR: DEUCE DRAFT REPORT BIRTHDATE: [birth year] [facility] Test Date: 2019-01-29 Test Time: 01:29:55 Pat Name: CALLY TOUSSAINT Department: Room: [facility] Gender: M Nail Professional: Kamilah Yañez : 1975 Requested By: SANJUANA HAGAN Order Number: [id number] Reading MD: Ruth Mcgraw MD Measurements Intervals [place] Rate: 90 P: 38 [place]: 193 QRS: 34 QRSD: 99 T: 62 QT: 374 QTc: 458 Interpretive Statements Sinus rhythm Abnormal R-wave progression, early transition Inferior infarct, old Partial missing lead(s): V6 Compared to ECG 12/12/2018 12:55:55 ST (T wave) deviation no longer present Myocardial infarct finding still present Electronically Signed On 01-29-2019 8:51:19 PST by Ruth Mcgraw MD CM:EKGRPT:ELECTROCARDIOGRAM REPORT [id number] SANJUANA TRIPATHI DRAFT REPORT SANJUANA HAGAN MD
--- NOTE | ~2019-01-28 | EKG ---
[place], [place] ELECTROCARDIOGRAM REPORT NAME: CALLY TOUSSAINT UNIT #: [id number] ROOM: [facility] DOCTOR: DEUCE DRAFT REPORT BIRTHDATE: [birth year] [facility] Test Date: 2019-01-29 Test Time: 07:12:33 Pat Name: CALLY TOUSSAINT Department: Room: [place] [address] Gender: M Diesel Mechanic Helper: Eli Stacy : 1975 Requested By: GLORIA SUTHERLAND Order Number: [id number] Reading MD: Ruth Mcgraw MD Measurements Intervals [place] Rate: 90 P: 46 ME: 209 QRS: 50 QRSD: 100 T: 73 QT: 386 QTc: 473 Interpretive Statements Sinus rhythm Borderline prolonged ME interval Abnormal R-wave progression, early transition Inferior infarct, old Compared to ECG 12/12/2018 12:55:55 ST (T wave) deviation no longer present Myocardial infarct finding still present Electronically Signed On 01-29-2019 8:52:07 PST by Ruth Mcgraw MD CM:EKGRPT:ELECTROCARDIOGRAM REPORT [id number] GLORIA SUTHERLAND EPIPHANY DRAFT REPORT GLORIA SUTHERLAND
--- NOTE | ~2019-01-28 | EKG ---
[place], [place] ELECTROCARDIOGRAM REPORT NAME: CALLY TOUSSAINT UNIT #: [id number] ROOM: [facility] DOCTOR: DEUCE DRAFT REPORT BIRTHDATE: [birth year] [facility] Test Date: 2019-01-29 Test Time: 05:03:47 Pat Name: CALLY TOUSSAINT Department: Room: [place] [address] Gender: M Customer Relations Representative: Kamilah Yañez : 1975 Requested By: GLORIA SUTHERLAND Order Number: [id number] Reading MD: Ruth Mcgraw MD Measurements Intervals [place] Rate: 90 P: 39 [place]: 188 QRS: 39 QRSD: 105 T: 69 QT: 389 QTc: 476 Interpretive Statements Sinus rhythm Inferior infarct, old Compared to ECG 12/12/2018 12:55:55 ST (T wave) deviation no longer present Myocardial infarct finding still present Electronically Signed On 01-29-2019 8:52:00 PST by Ruth Mcgraw MD CM:EKGRPT:ELECTROCARDIOGRAM REPORT [id number] [id number] GLORIA SUTHERLAND EPIPHANY DRAFT REPORT GLORIA SUTHERLAND
--- NOTE | ~2019-01-28 | EKG ---
[place], [place] ELECTROCARDIOGRAM REPORT NAME: CALLY TOUSSAINT UNIT #: [id number] ROOM: [facility] DOCTOR: DEUCE DRAFT REPORT BIRTHDATE: [birth year] [facility] Test Date: 2019-01-29 Test Time: 10:55:55 Pat Name: CALLY TOUSSAINT Department: Room: [place] [address] Gender: M Bowling Alley Manager: : 1975 Requested By: GLORIA SUTHERLAND Order Number: [id number] Reading MD: Ruth Mcgraw MD Measurements Intervals [place] Rate: 87 P: 41 [place]: 191 QRS: 35 QRSD: 95 T: 56 QT: 382 QTc: 460 Interpretive Statements Sinus rhythm Abnormal R-wave progression, early transition Inferior infarct, old Compared to ECG 12/12/2018 12:55:55 ST (T wave) deviation no longer present Myocardial infarct finding still present Electronically Signed On 01-29-2019 8:52:11 PST by Ruth Mcgraw MD CM:EKGRPT:ELECTROCARDIOGRAM REPORT [id number] GLORIA TRIPATHI DRAFT REPORT GLORIA SUTHERLAND
[~2019-01-28 22:34] MED LIST changes: +KEFLEX250 MG PO; +KEFLEX500 M1 PO
[2019-01-28 22:40] VITALS: BP 129/89
--- NOTE | 2019-01-28 22:52 | NUR ---
PT TO TREATMENT ROOM IN NO ACUTE DISTRESS, ASSESSMENT COMPLETE, LAB AT BEDSIDE TO DRAW LABS ORDERED, PT WAS EVALUATED BY MD AT TRIAGE
[2019-01-28 23:00] LABS: BASO # 0.1 10*3/uL (0.0-0.1); BASO % 0.5 % (0.0-1.0); EOS # 0.9 10*3/uL (0.0-0.4); EOS % 4.4 % (1.0-4.0); HEMATOCRIT 40.6 % (42.0-52.0); HEMOGLOBIN 13.5 g/dl (14.0-18.0); LYMPH # 3.4 10*3/uL (1.3-4.4); LYMPH % 17.7 % (27.0-41.0); MEAN CELL VOLUME 85.5 fl (80.0-94.0); MEAN CORPUSCULAR HGB 28.4 pg (27.0-31.0); MEAN CORPUSCULAR HGB CONC 33.3 g/dl (33.0-37.0); MEAN PLATELET VOLUME 9.3 fl (9.6-12.3); MONO # 1.1 10*3/uL (0.1-1.0); MONO % 5.5 % (3.0-9.0); NEUT # 13.9 10*3/uL (2.3-7.9); NEUT % 71.5 % (47.0-73.0); PLATELET COUNT AUTOMATED 270 10*3/uL (130-400); RED BLOOD COUNT 4.75 10*6/uL (4.50-5.90); RED CELL DISTRI WIDTH 13.3 % (0-14.5); WHITE BLOOD COUNT 19.4 10*3/uL (4.8-10.8)
[2019-01-28 23:11] LABS: ACT PARTIAL THROMBO TIME 26.1 SECONDS (20.0-32.1); INTERNATIONAL NORM RATIO 0.9 (2.0-3.5)
[2019-01-28 23:16] LABS: ALBUMIN 3.8 gm/dl (3.1-4.5); ALKALINE PHOSPHATASE 91 U/L (45-117); BUN 21 mg/dl (7-24); CHLORIDE 105 mmol/L (98-107); CREATININE 1.29 mg/dL (0.70-1.30); POTASSIUM 3.9 mmol/L (3.5-5.1); SGOT/AST 17 IU/L (3-35); SGPT/ALT 21 U/L (12-78); SODIUM 136 mmol/L (136-145); TOTAL PROTEIN 7.6 gm/dL (6.4-8.2)
--- NOTE | 2019-01-28 23:25 | NUR ---
PT RETURNED FROM XRAY IN NO DISTRESS
--- NOTE | 2019-01-28 23:31 | NUR ---
CLEAN CATCH UA OBTAINED AND SEN TO LAB, CLEAR, YELLOW URINE NOTED, PT TO XRAY ORDERED BY
[2019-01-28 23:34] LABS: BILIRUBIN NEGATIVE (NEGATIVE); BLOOD NEGATIVE (NEGATIVE); CLARITY CLEAR (CLEAR); COLOR YELLOW (YELLOW); GLUCOSE NEGATIVE (NEGATIVE); KETONE NEGATIVE (NEGATIVE); LEUKO ESTERASE NEGATIVE (NEGATIVE); NITRITE NEGATIVE (NEGATIVE); PH 5.5 (5.0-9.0); SPECIFIC GRAVITY >= 1.030 (1.005-1.030); UROBILINOGEN 0.2 E.U./dl (0.2-1.0)
--- NOTE | 2019-01-28 23:42 | NUR ---
PT TO ULTRASOUND IN NO ACUTE DISTRESS ORDERED
[2019-01-28 23:43] LABS: BACTERIA TRACE; MUCOUS 1+
--- NOTE | 2019-01-28 23:55 | NUR ---
PT RETURNED FROM ULTRASOUND IN NO ACUTE DISTRESS, RESTING QUIETLY, CALL AVILA IN REACH
[2019-01-29] VITALS (10 sets, daily range): BP systolic 94–126; BP diastolic 50–76
--- NOTE | 2019-01-29 00:53 | NUR ---
RESIDENT IN TO SEE PT FOR ADMISSION
--- NOTE | 2019-01-29 01:21 | NUR ---
PT HAD A RUN OF VT, PT STATES HE FELT A "FLUTTER, DENIES ANY OTHER COMPLAINTS, MD AT BEDSIDE
--- NOTE | 2019-01-29 01:30 | NUR ---
WELDER 2ND SHIFT IN AT BEDSIDE TO COMPLETE EKG ORDERED
--- NOTE | 2019-01-29 01:57 | NUR ---
CRITICAL LACTIC ACID RECEIVED FROM [facility]EL[facility] IN LAB. OF 2.1 DR GOMEZ MADE AWARE
--- NOTE | 2019-01-29 01:57 | NUR ---
LIDOCAINE GTT STARTED VIA IV PUMP ORDERED SEE EMAR
--- NOTE | 2019-01-29 02:26 | NUR ---
CT COMPLETE ORDERED
--- NOTE | 2019-01-29 02:43 | NUR ---
MRSA SWAB OBTAINED AND SENT TO LAB ORDERED, PT TOLERATED WELL
--- NOTE | 2019-01-29 03:08 | NUR ---
A 43yr old male, admitted to ICCU, under the services of YARITZA Sheikh DO with a diagnosis of CELLULITIS OF RT LEG, HEMATURIA, VENTRICULAR TACHYCARDIA,SEPSIS, HISTORY OF KIDNEY STONES. Chief complaint is pain and swelling of left leg, patient ambulated approximately one mile to arrive in ER. While in ER patient had 15 seconds of Ventricular tachycardia (felt fluttering in chest) and this has been treated with a Lidocaine 100mg bolus and a drip started at 2mg/min. Ultrasound positive for non-occlusive DVT of left popliteal and lower femerol vein. Patient was given Lovenox 1mg/kg SC in ER. Patient also gives a history of a kidney stone "more than 20 years ago". Patient anxious to eat. Patient arrived via stretcher from ER. Monitor applied. Initial assessment completed. Vital signs taken and recorded. See assessment for past medical history, medications and allergies. Patient and/or family oriented to unit. [facility] ICCU visitation policy reviewed. Clothing/patient valuable form completed. DARWIN RODRIGUEZ
--- NOTE | 2019-01-29 03:10 | NUR ---
PT ADMITTED TO ICU WITH RN ON MONITOR, RESP EASY, LIDOCAINE GTT INFUSING VIA IV PUMP WITH NO REDNESS OR SWELLING, BELONGINGS WITH PT
[2019-01-29] MEDS ORDERED: XARELTO20 M1 PO (03:29)
--- NOTE | 2019-01-29 04:00 | NUR ---
PT TAKES SUBOXONE TWICE/DAY FOR OLD "METH USE". PT RELAYED DURING ADMISSION ASSESSMENT THAT HE "SMOKED WEED THIS WEEK, AND WAS TOLD LATER THAT THERE WAS METH IN IT TOO".
--- NOTE | 2019-01-29 05:44 | NUR ---
PT PULLED THE HEP LOCK OUT OF HIS RT ANTECUBITAL "IN MY SLEEP". NEW IV STARTED LEFT WRIST. [facility] CARDIOLOGY ANSWERING SERVICE WAS CALLED WITH PT'S NAME FOR CONSULTATION.
[2019-01-29 06:05] LABS: URINE AMPHETAMINES > 1000 (1000ng/ml); URINE BARBITURATES < 200 (200ng/ml); URINE BENZODIAZEPINES < 200 (200ng/ml); URINE CANNABINOIDS (THC) < 50 (50ng/ml); URINE COCAINE < 300 (300ng/ml); URINE METHADONE < 300 (300ng/ml); URINE OPIATES < 300 (300ng/ml)
[2019-01-29 06:12] LABS: URINE PHENCYCLIDINE < 25 (25ng/ml)
[2019-01-29 06:51] LABS: BASO # 0.1 10*3/uL (0.0-0.1); BASO % 0.5 % (0.0-1.0); EOS # 0.5 10*3/uL (0.0-0.4); EOS % 4.6 % (1.0-4.0); HEMATOCRIT 35.5 % (42.0-52.0); HEMOGLOBIN 11.6 g/dl (14.0-18.0); LYMPH # 2.6 10*3/uL (1.3-4.4); LYMPH % 23.6 % (27.0-41.0); MEAN CELL VOLUME 86.6 fl (80.0-94.0); MEAN CORPUSCULAR HGB 28.3 pg (27.0-31.0); MEAN CORPUSCULAR HGB CONC 32.7 g/dl (33.0-37.0); MEAN PLATELET VOLUME 9.3 fl (9.6-12.3); MONO # 0.7 10*3/uL (0.1-1.0); MONO % 6.2 % (3.0-9.0); NEUT # 7.2 10*3/uL (2.3-7.9); NEUT % 64.7 % (47.0-73.0); PLATELET COUNT AUTOMATED 217 10*3/uL (130-400); RED CELL DISTRI WIDTH 13.5 % (0-14.5); WHITE BLOOD COUNT 11.2 10*3/uL (4.8-10.8)
[2019-01-29 07:07] LABS: BUN 16 mg/dl (7-24); CHLORIDE 110 mmol/L (98-107); CHOLESTEROL 164 mg/dL (<200); CREATININE 0.99 mg/dL (0.70-1.30); FREE T4 1.21 ng/dl (0.76-1.46); HDL CHOLESTEROL 24 mg/dl (40-60); LDL CHOLESTEROL 99 mg/dL (9-159); PHOSPHOROUS 3.1 mg/dL (2.5-4.9); POTASSIUM 3.4 mmol/L (3.5-5.1); SODIUM 140 mmol/L (136-145); TRIGLYCERIDES 205 mg/dl (<150); VLDL CHOLESTEROL 41 mg/dL (6-40)
[2019-01-29 08:37] LABS: VITAMIN D, 25-HYDROXY 24.2 ng/mL (30-100)
--- NOTE | 2019-01-29 09:00 | NUR ---
DR. HERRERA IN THE [facility] TO CHECK IN ON THE PATIENT AND REVIEW PATIENT CONDITION.
--- NOTE | 2019-01-29 10:30 | NUR ---
DR. GAINES IN TO SEE THE PATIENT AND DISCUSS PLAN OF CARE. CTA CHEST ORDERED TO RULE OUT PULMONARY EMBOLUS.
--- NOTE | 2019-01-29 13:30 | NUR ---
DR. HERRERA IN TO TALK TO PATIENT ABOUT CTA RESULT. PATIENT IS AMMENDABLE TO BEING TRANSFERRED TO ANOTHER FACILITY FOR FURTHER CARE.
--- NOTE | 2019-01-29 14:40 | NUR ---
SPOKE TO DR. HERRERA ABOUT PATIENT TRANSFER. DR. GEORGE IS THE ACCEPTING PHYSICIAN AT [facility]. AWAITING CALL FROM [facility] FOR BED ASSIGNMENT.
[2019-01-29] MEDS ORDERED: ATORVASTATIN CA40 M1 PO (16:39)
[2019-01-29] MEDS ORDERED: VITAMIN D32000 UNI1 PO (16:39)
[2019-01-29] MEDS ORDERED: ASPIRIN ADULT L81 M2 PO (16:39)
[2019-01-29] MEDS ORDERED: METOPROLOL SUCC25 M2 PO (16:39)
--- NOTE | 2019-01-29 16:57 | NUR ---
NURSE TO NURSE REPORT GIVEN TO JOSEPHINE DOSHI FROM [facility]. AWAITING TRANSPORT TO ARRIVE.
--- NOTE | 2019-01-29 17:35 | NUR ---
PATIENT TAKEN OFF THE FLOOR VIA STRETCHER BY [facility].
== END 2019-01-29 18:08 | disposition short-term general hospital (02) | DRG 720 ==
LOC: ED 22:34 → EDHOLD 01-29 01:45 → ICCU 01-29 01:56
PROVIDERS: Emergency Medicine Emergency Medical Services; Internal Medicine; ADMIT Internal Medicine
DX: A41.9 Sepsis, unspecified organism (principal); I26.99 Other pulmonary embolism without acute cor pulmonale; I82.432 Acute embolism and thrombosis of left popliteal vein; R65.20 Severe sepsis without septic shock; L03.115 Cellulitis of right lower limb; I47.2 Ventricular tachycardia; D64.9 Anemia, unspecified; E83.42 Hypomagnesemia; R73.9 Hyperglycemia, unspecified; I25.10 Atherosclerotic heart disease of native coronary artery without angina pectoris; E78.5 Hyperlipidemia, unspecified; G62.9 Polyneuropathy, unspecified; E66.9 Obesity, unspecified; F15.10 Other stimulant abuse, uncomplicated; I11.0 Hypertensive heart disease with heart failure; I50.9 Heart failure, unspecified; I82.412 Acute embolism and thrombosis of left femoral vein; G89.29 Other chronic pain; R31.9 Hematuria, unspecified; F17.210 Nicotine dependence, cigarettes, uncomplicated; M19.90 Unspecified osteoarthritis, unspecified site; E87.6 Hypokalemia; E87.8 Other disorders of electrolyte and fluid balance, not elsewhere classified; E83.41 Hypermagnesemia; Z68.30 Body mass index [BMI] 30.0-30.9, adult; Z71.6 Tobacco abuse counseling; Z87.442 Personal history of urinary calculi; Z86.718 Personal history of other venous thrombosis and embolism; I25.2 Old myocardial infarction; Z95.5 Presence of coronary angioplasty implant and graft; Z80.8 Family history of malignant neoplasm of other organs or systems; Z84.89 Family history of other specified conditions; Z88.0 Allergy status to penicillin; Z79.01 Long term (current) use of anticoagulants; Z79.899 Other long term (current) drug therapy; Z79.02 Long term (current) use of antithrombotics/antiplatelets; Z79.82 Long term (current) use of aspirin

== ENCOUNTER → 2019-02-07 | Outpatient (CLI) | payer OTHER ==
[~2019-02-07] MED LIST changes: +ATORVASTATIN CA40 M1 PO; +VITAMIN D32000 UNI1 PO; +XARELTO20 M1 PO
== END | disposition home or self-care (01) ==
LOC: RESCLI 14:02
DX: I82.511 Chronic embolism and thrombosis of right femoral vein (principal); L03.116 Cellulitis of left lower limb; E78.5 Hyperlipidemia, unspecified; I10 Essential (primary) hypertension; Z72.0 Tobacco use; Z71.6 Tobacco abuse counseling; Z79.899 Other long term (current) drug therapy; Z88.0 Allergy status to penicillin

== ENCOUNTER → 2019-02-22 | Outpatient (CLI) | payer OTHER ==
[2019-02-22 11:04] LABS: BASO # 0.1 10*3/uL (0.0-0.1); BASO % 0.7 % (0.0-1.0); EOS # 0.5 10*3/uL (0.0-0.4); EOS % 4.4 % (1.0-4.0); HEMATOCRIT 40.3 % (42.0-52.0); HEMOGLOBIN 12.8 g/dl (14.0-18.0); LYMPH # 2.4 10*3/uL (1.3-4.4); LYMPH % 21.8 % (27.0-41.0); MEAN CORPUSCULAR HGB 28.3 pg (27.0-31.0); MEAN CORPUSCULAR HGB CONC 31.8 g/dl (33.0-37.0); MEAN PLATELET VOLUME 9.8 fl (9.6-12.3); MONO # 0.7 10*3/uL (0.1-1.0); MONO % 6.2 % (3.0-9.0); NEUT # 7.2 10*3/uL (2.3-7.9); NEUT % 66.5 % (47.0-73.0); PLATELET COUNT AUTOMATED 291 10*3/uL (130-400); RED BLOOD COUNT 4.53 10*6/uL (4.50-5.90); RED CELL DISTRI WIDTH 13.5 % (0-14.5); WHITE BLOOD COUNT 10.9 10*3/uL (4.8-10.8)
[2019-02-22 11:22] LABS: ALBUMIN 3.3 gm/dl (3.1-4.5); ALKALINE PHOSPHATASE 86 U/L (45-117); BUN 7 mg/dl (7-24); CHLORIDE 109 mmol/L (98-107); CREATININE 0.98 mg/dL (0.70-1.30); POTASSIUM 4.4 mmol/L (3.5-5.1); SGOT/AST 13 IU/L (3-35); SGPT/ALT 18 U/L (12-78); SODIUM 141 mmol/L (136-145); TOTAL PROTEIN 6.9 gm/dL (6.4-8.2)
[2019-02-22 11:23] LABS: BILIRUBIN, DIRECT < 0.1 mg/dL (0.0-0.2)
[2019-02-23 08:09] LABS: HEPATITIS B SURFACE AG Negative (Negative); HEPATITIS C VIRUS ANTIBODY <0.1 s/co (0.0-0.9)
[2019-02-25 15:09] LABS: TB1 Ag VALUE 0.04 IU/mL (.)
== END | disposition home or self-care (01) ==
LOC: LAB 01:11 → RESCLI 01:11
PROVIDERS: Anesthesiology Addiction Medicine
DX: F11.20 Opioid dependence, uncomplicated (principal)

== ENCOUNTER 2019-08-14 11:33 | Emergency (ER) | payer OTHER ==
[2019-08-14 12:41] LABS: BASO # 0.1 10*3/uL (0.0-0.1); BASO % 0.6 % (0.0-1.0); EOS # 0.4 10*3/uL (0.0-0.4); EOS % 2.1 % (1.0-4.0); HEMATOCRIT 45.2 % (42.0-52.0); LYMPH # 1.7 10*3/uL (1.3-4.4); LYMPH % 9.5 % (27.0-41.0); MEAN CELL VOLUME 87.8 fl (80.0-94.0); MEAN CORPUSCULAR HGB 28.5 pg (27.0-31.0); MEAN CORPUSCULAR HGB CONC 32.5 g/dl (33.0-37.0); MEAN PLATELET VOLUME 9.9 fl (9.6-12.3); MONO # 0.9 10*3/uL (0.1-1.0); MONO % 5.4 % (3.0-9.0); NEUT # 14.3 10*3/uL (2.3-7.9); NEUT % 81.9 % (47.0-73.0); PLATELET COUNT AUTOMATED 297 10*3/uL (130-400); RED BLOOD COUNT 5.15 10*6/uL (4.50-5.90); RED CELL DISTRI WIDTH 13.5 % (0-14.5); WHITE BLOOD COUNT 17.4 10*3/uL (4.8-10.8)
[2019-08-14 12:52] LABS: ALBUMIN 3.5 gm/dl (3.1-4.5); ALKALINE PHOSPHATASE 116 U/L (45-117); BUN 12 mg/dl (7-24); CHLORIDE 109 mmol/L (98-107); CREATININE 0.99 mg/dL (0.70-1.30); POTASSIUM 4.4 mmol/L (3.5-5.1); SGOT/AST 24 IU/L (3-35); SGPT/ALT 34 U/L (12-78); SODIUM 138 mmol/L (136-145); TOTAL PROTEIN 7.3 gm/dL (6.4-8.2)
== END 2019-08-14 15:50 | disposition short-term general hospital (02) ==
LOC: ED 11:33
PROVIDERS: Emergency Medicine
DX: M00.861 Arthritis due to other bacteria, right knee (principal); I10 Essential (primary) hypertension; I25.2 Old myocardial infarction; Z88.0 Allergy status to penicillin; Z87.891 Personal history of nicotine dependence; Z86.718 Personal history of other venous thrombosis and embolism

== ENCOUNTER 2019-08-24 11:33 | Inpatient (IN) | payer OTHER ==
[~2019-08-24] VITALS: Ht 182.8 cm; Wt 107.3 kg
[2019-08-24 11:47] VITALS: BP 139/88
[2019-08-24 11:52] LABS: BASO # 0.1 10*3/uL (0.0-0.1); BASO % 0.5 % (0.0-1.0); EOS # 0.1 10*3/uL (0.0-0.4); EOS % 0.5 % (1.0-4.0); HEMATOCRIT 46.1 % (42.0-52.0); LYMPH # 2.3 10*3/uL (1.3-4.4); LYMPH % 17.6 % (27.0-41.0); MEAN CORPUSCULAR HGB 28.1 pg (27.0-31.0); MEAN CORPUSCULAR HGB CONC 32.3 g/dl (33.0-37.0); MEAN PLATELET VOLUME 8.9 fl (9.6-12.3); MONO # 0.7 10*3/uL (0.1-1.0); NEUT # 10.1 10*3/uL (2.3-7.9); PLATELET COUNT AUTOMATED 462 10*3/uL (130-400); RED CELL DISTRI WIDTH 13.3 % (0-14.5); WHITE BLOOD COUNT 13.2 10*3/uL (4.8-10.8)
[2019-08-24 12:02] LABS: ACT PARTIAL THROMBO TIME 29.9 SECONDS (20.0-32.1); INTERNATIONAL NORM RATIO 1.2 (2.0-3.5)
[2019-08-24 12:08] LABS: ALBUMIN 3.3 gm/dl (3.1-4.5); ALKALINE PHOSPHATASE 103 U/L (45-117); BUN 24 mg/dl (7-24); CHLORIDE 109 mmol/L (98-107); CREATININE 1.27 mg/dL (0.70-1.30); SGOT/AST 22 IU/L (3-35); SGPT/ALT 47 U/L (12-78); SODIUM 139 mmol/L (136-145)
[2019-08-24 12:11] LABS: TROPONIN I < 0.015 ng/ml (<0.045)
--- NOTE | 2019-08-24 12:43 | NUR ---
PT PTOVIDED URINAL.
[2019-08-24 12:50] VITALS: BP 132/83
[2019-08-24 13:12] VITALS: BP 126/85
--- NOTE | 2019-08-24 13:12 | NUR ---
A 43, admitted to , under the services of TRACI Moreno DO with a diagnosis of PALPITATIONS, POLYSUBSTANCE ABUSE. Chief complaint is PALPITATIONS. Patient arrived via ambulatory from ER. Monitor applied. Initial assessment completed. Vital signs taken and recorded. TRACI MORENO DO notified of admission to the unit. Orders received. See assessment for past medical history, medications and allergies. Patient and/or family oriented to unit. [facility] visitation policy reviewed. Clothing/patient valuable form completed. KELLI LAI A
--- NOTE | 2019-08-24 13:30 | NUR ---
IN TO SEE PT.
[2019-08-24 13:31] LABS: URINE AMPHETAMINES > 1000 (1000ng/ml); URINE BARBITURATES < 200 (200ng/ml); URINE BENZODIAZEPINES < 200 (200ng/ml); URINE CANNABINOIDS (THC) > 50 (50ng/ml); URINE COCAINE < 300 (300ng/ml); URINE METHADONE < 300 (300ng/ml); URINE OPIATES < 300 (300ng/ml)
[2019-08-24 13:32] LABS: URINE PHENCYCLIDINE < 25 (25ng/ml)
[2019-08-24 13:33] LABS: BILIRUBIN NEGATIVE (NEGATIVE); BLOOD NEGATIVE (NEGATIVE); CLARITY SL CLOUDY (CLEAR); COLOR YELLOW (YELLOW); GLUCOSE NEGATIVE (NEGATIVE); HYALINE CAST 21-30; KETONE NEGATIVE (NEGATIVE); LEUKO ESTERASE NEGATIVE (NEGATIVE); NITRITE NEGATIVE (NEGATIVE); UROBILINOGEN 0.2 E.U./dl (0.2-1.0)
[2019-08-24] MEDS ORDERED: XARE20MG PO (13:38)
--- NOTE | 2019-08-24 13:39 | NUR ---
MED REC UPDATED VIA CLAIM HISTORY.
--- NOTE | 2019-08-24 13:48 | NUR ---
IN TO SEE PT.
--- NOTE | 2019-08-24 13:59 | NUR ---
PER , DO NOT CALL ID CONSULT UNTIL RECORDS FROM [facility] HAVE BEEN REC'D.
--- NOTE | 2019-08-24 14:20 | NUR ---
AWARE MED REC WAS UPDATED.
--- NOTE | 2019-08-24 15:20 | NUR ---
Nursing screen received and OT orders. Will follow up with the patient for completion of an OT evaluation. Thank you. Andria Yoon, OTR/L
[2019-08-24 16:00] VITALS: BP 120/81
--- NOTE | 2019-08-24 19:30 | NUR ---
PATIENT PULLED OUT HIS IV AND THREW IT AWAY. WILL NOTIFY DOCTOR.
[2019-08-24 20:00] VITALS: BP 127/75
--- NOTE | 2019-08-24 21:13 | NUR ---
INFORMED THAT PATIENT PULLED OUT IV STATED THAT IT HURT AND DIDNT WANT IT D/T NOT RECEIVING ANYTHING VIA IV. EDUCATION PROVIDED INFORMED THAT HE PREFER TO HAVE ONE INCASE OF AN EMERGENCY, PATIENT REFUSED. DOCTOR STATED OK, WE'LL TRY TOMORROW. ALSO INFORMED THAT PATIENT IS REQUESTING NICOTINE PATCH, STATED OK.
[2019-08-25] VITALS: BP 116/83
--- NOTE | 2019-08-25 02:10 | NUR ---
MADE AWARE THAT PATIENT HAS REQUESTED TO LEAVE AMA EVEN AFTER EDUCATION AND INFORMED IN HIS BEST INTEREST TO STAY, ASKED PATIENT IF HE WOULD LIKE TO SEE DOCTOR PRIOR TO LEAVING, STATED NO HE ALREADY MADE HIS MIND UP. ATATED OK.
--- NOTE | 2019-08-25 02:11 | NUR ---
PATIENT REFUSED MEDICATED IN PHARMACY. STATED THAT HE WASNT GOING TO TAKE THE MEDICATION THAT HE DIDNT WANT IT AND TO GIVE IT TO SOMEONE ELSE SINCE IT WAS EXPENSIVE.
== END 2019-08-25 02:11 | disposition left against medical advice (07) | DRG 812 ==
LOC: ED 11:33 → EDHOLD 12:31 → 4E 12:56
PROVIDERS: Emergency Medicine; Family Medicine; ADMIT Family Medicine
DX: T43.621A Poisoning by amphetamines, accidental (unintentional), initial encounter (principal); R00.2 Palpitations; D72.829 Elevated white blood cell count, unspecified; D47.3 Essential (hemorrhagic) thrombocythemia; E87.8 Other disorders of electrolyte and fluid balance, not elsewhere classified; R73.9 Hyperglycemia, unspecified; E83.41 Hypermagnesemia; I10 Essential (primary) hypertension; F17.210 Nicotine dependence, cigarettes, uncomplicated; D68.59 Other primary thrombophilia; M00.9 Pyogenic arthritis, unspecified; E78.5 Hyperlipidemia, unspecified; I25.10 Atherosclerotic heart disease of native coronary artery without angina pectoris; E66.9 Obesity, unspecified; F19.10 Other psychoactive substance abuse, uncomplicated; Z53.29 Procedure and treatment not carried out because of patient's decision for other reasons; Z71.6 Tobacco abuse counseling; Z86.718 Personal history of other venous thrombosis and embolism; Z79.01 Long term (current) use of anticoagulants; Z86.711 Personal history of pulmonary embolism; I25.2 Old myocardial infarction; Z95.5 Presence of coronary angioplasty implant and graft; Z88.0 Allergy status to penicillin; Z87.442 Personal history of urinary calculi; Z68.32 Body mass index [BMI] 32.0-32.9, adult; Z80.9 Family history of malignant neoplasm, unspecified; Z83.2 Family history of diseases of the blood and blood-forming organs and certain disorders involving the immune mechanism

== ENCOUNTER → 2019-09-05 | Outpatient (CLI) | payer OTHER ==
[~2019-09-05] MED LIST changes: +XARE20MG PO
== END | disposition home or self-care (01) ==
LOC: RESCLI 01:12
DX: G89.29 Other chronic pain (principal); M17.31 Unilateral post-traumatic osteoarthritis, right knee; I25.119 Atherosclerotic heart disease of native coronary artery with unspecified angina pectoris; M17.11 Unilateral primary osteoarthritis, right knee; M87.039 Idiopathic aseptic necrosis of unspecified carpus; I21.9 Acute myocardial infarction, unspecified; I10 Essential (primary) hypertension; I25.2 Old myocardial infarction; E78.5 Hyperlipidemia, unspecified; I82.511 Chronic embolism and thrombosis of right femoral vein; K21.9 Gastro-esophageal reflux disease without esophagitis; E55.9 Vitamin D deficiency, unspecified; F11.23 Opioid dependence with withdrawal; F15.10 Other stimulant abuse, uncomplicated; M00.9 Pyogenic arthritis, unspecified; F17.200 Nicotine dependence, unspecified, uncomplicated; Z86.711 Personal history of pulmonary embolism; Z79.899 Other long term (current) drug therapy; Z98.890 Other specified postprocedural states; Z95.828 Presence of other vascular implants and grafts; Z88.0 Allergy status to penicillin

== ENCOUNTER → 2019-10-06 | Outpatient (CLI) | payer OTHER | END | disposition home or self-care (01) | LOC: RESCLI 08:53 | DX: M00.9 Pyogenic arthritis, unspecified (principal); G89.29 Other chronic pain; E78.5 Hyperlipidemia, unspecified; I10 Essential (primary) hypertension; F11.10 Opioid abuse, uncomplicated; L23.9 Allergic contact dermatitis, unspecified cause; I82.511 Chronic embolism and thrombosis of right femoral vein; A41.9 Sepsis, unspecified organism ==

== ENCOUNTER 2019-10-10 12:12 | Emergency (ER) | payer OTHER ==
[~2019-10-10] VITALS: Ht 182.8 cm; Wt 129.3 kg
[2019-10-10 13:34] LABS: BASO # 0.1 10*3/uL (0.0-0.1); BASO % 0.4 % (0.0-1.0); EOS # 0.1 10*3/uL (0.0-0.4); EOS % 0.7 % (1.0-4.0); HEMATOCRIT 39.3 % (42.0-52.0); LYMPH # 1.7 10*3/uL (1.3-4.4); LYMPH % 15.4 % (27.0-41.0); MEAN CELL VOLUME 83.1 fl (80.0-94.0); MEAN CORPUSCULAR HGB 26.2 pg (27.0-31.0); MEAN CORPUSCULAR HGB CONC 31.6 g/dl (33.0-37.0); MEAN PLATELET VOLUME 9.2 fl (9.6-12.3); MONO # 0.4 10*3/uL (0.1-1.0); MONO % 3.8 % (3.0-9.0); NEUT # 8.8 10*3/uL (2.3-7.9); NEUT % 79.3 % (47.0-73.0); PLATELET COUNT AUTOMATED 377 10*3/uL (130-400); RED BLOOD COUNT 4.73 10*6/uL (4.50-5.90); RED CELL DISTRI WIDTH 13.4 % (0-14.5); WHITE BLOOD COUNT 11.2 10*3/uL (4.8-10.8)
[2019-10-10 13:47] LABS: ALBUMIN 2.9 gm/dl (3.1-4.5); ALKALINE PHOSPHATASE 95 U/L (45-117); BUN 9 mg/dl (7-24); CHLORIDE 110 mmol/L (98-107); CREATININE 0.79 mg/dL (0.70-1.30); POTASSIUM 3.9 mmol/L (3.5-5.1); SGOT/AST 13 IU/L (3-35); SGPT/ALT 20 U/L (12-78); SODIUM 140 mmol/L (136-145); TOTAL PROTEIN 7.2 gm/dL (6.4-8.2)
== END 2019-10-10 16:22 | disposition left against medical advice (07) ==
LOC: ED 12:12
PROVIDERS: Emergency Medicine
DX: M00.861 Arthritis due to other bacteria, right knee (principal); I25.2 Old myocardial infarction; I10 Essential (primary) hypertension; E78.00 Pure hypercholesterolemia, unspecified; F17.200 Nicotine dependence, unspecified, uncomplicated; Z88.0 Allergy status to penicillin

== ENCOUNTER 2019-10-22 12:10 | Emergency (ER) | payer OTHER ==
[~2019-10-22] VITALS: Ht 182.8 cm; Wt 131.5 kg
[2019-10-22 14:06] LABS: BASO # 0.1 10*3/uL (0.0-0.1); BASO % 0.6 % (0.0-1.0); EOS # 0.1 10*3/uL (0.0-0.4); EOS % 1.1 % (1.0-4.0); HEMATOCRIT 39.1 % (42.0-52.0); LYMPH # 1.7 10*3/uL (1.3-4.4); LYMPH % 13.5 % (27.0-41.0); MEAN CELL VOLUME 83.5 fl (80.0-94.0); MEAN CORPUSCULAR HGB 26.3 pg (27.0-31.0); MEAN CORPUSCULAR HGB CONC 31.5 g/dl (33.0-37.0); MONO # 0.9 10*3/uL (0.1-1.0); MONO % 6.9 % (3.0-9.0); NEUT # 9.5 10*3/uL (2.3-7.9); NEUT % 77.6 % (47.0-73.0); PLATELET COUNT AUTOMATED 332 10*3/uL (130-400); RED BLOOD COUNT 4.68 10*6/uL (4.50-5.90); RED CELL DISTRI WIDTH 14.5 % (0-14.5); WHITE BLOOD COUNT 12.3 10*3/uL (4.8-10.8)
[2019-10-22 14:29] LABS: ALKALINE PHOSPHATASE 95 U/L (45-117); BUN 8 mg/dl (7-24); CHLORIDE 106 mmol/L (98-107); CREATININE 0.96 mg/dL (0.70-1.30); POTASSIUM 4.5 mmol/L (3.5-5.1); SGOT/AST 12 IU/L (3-35); SGPT/ALT 19 U/L (12-78); SODIUM 139 mmol/L (136-145); TOTAL PROTEIN 7.2 gm/dL (6.4-8.2)
== END 2019-10-22 21:29 | disposition short-term general hospital (02) ==
LOC: ED 12:10
PROVIDERS: Emergency Medicine
DX: M00.9 Pyogenic arthritis, unspecified (principal); M19.90 Unspecified osteoarthritis, unspecified site; I25.10 Atherosclerotic heart disease of native coronary artery without angina pectoris; E78.5 Hyperlipidemia, unspecified; Z88.0 Allergy status to penicillin

== ENCOUNTER → 2019-11-07 | Outpatient (CLI) | payer OTHER | END | disposition home or self-care (01) | LOC: RESCLI 01:06 | PROVIDERS: ATTEND Emergency Medicine | DX: M17.11 Unilateral primary osteoarthritis, right knee (principal); G89.29 Other chronic pain; E78.5 Hyperlipidemia, unspecified; I10 Essential (primary) hypertension; F11.10 Opioid abuse, uncomplicated; L23.9 Allergic contact dermatitis, unspecified cause; F17.210 Nicotine dependence, cigarettes, uncomplicated; I82.511 Chronic embolism and thrombosis of right femoral vein; Z79.899 Other long term (current) drug therapy; Z79.82 Long term (current) use of aspirin; Z95.828 Presence of other vascular implants and grafts; Z98.890 Other specified postprocedural states; Z88.0 Allergy status to penicillin ==

== ENCOUNTER → 2020-01-09 | Outpatient (CLI) | payer OTHER ==
[2020-01-09 09:57] LABS: BASO # 0.1 10*3/uL (0.0-0.1); BASO % 0.8 % (0.0-1.0); EOS # 0.5 10*3/uL (0.0-0.4); EOS % 5.7 % (1.0-4.0); HEMATOCRIT 40.7 % (42.0-52.0); LYMPH # 2.1 10*3/uL (1.3-4.4); MEAN CELL VOLUME 83.7 fl (80.0-94.0); MEAN CORPUSCULAR HGB 26.3 pg (27.0-31.0); MEAN CORPUSCULAR HGB CONC 31.4 g/dl (33.0-37.0); MEAN PLATELET VOLUME 9.8 fl (9.6-12.3); MONO # 0.7 10*3/uL (0.1-1.0); MONO % 7.4 % (3.0-9.0); NEUT # 5.4 10*3/uL (2.3-7.9); NEUT % 60.7 % (47.0-73.0); PLATELET COUNT AUTOMATED 310 10*3/uL (130-400); RED BLOOD COUNT 4.86 10*6/uL (4.50-5.90); RED CELL DISTRI WIDTH 15.4 % (0-14.5); WHITE BLOOD COUNT 8.8 10*3/uL (4.8-10.8)
[2020-01-09 10:25] LABS: ALBUMIN 3.2 gm/dl (3.1-4.5); ALKALINE PHOSPHATASE 119 U/L (45-117); BILIRUBIN, DIRECT < 0.1 mg/dL (0.0-0.2); BUN 12 mg/dl (7-24); CHLORIDE 111 mmol/L (98-107); CREATININE 0.99 mg/dL (0.70-1.30); SGOT/AST 14 IU/L (3-35); SGPT/ALT 24 U/L (12-78); SODIUM 140 mmol/L (136-145); TOTAL PROTEIN 7.1 gm/dL (6.4-8.2)
[2020-01-10 07:10] LABS: HEP B CORE AB, IGM Negative (Negative); HEPATITIS B SURFACE AG Negative (Negative); HEPATITIS C VIRUS ANTIBODY 0.1 s/co (0.0-0.9)
[2020-01-12 06:08] LABS: TB1 Ag VALUE 0.02 IU/mL (.)
== END | disposition home or self-care (01) ==
LOC: LAB 09:23
PROVIDERS: ATTEND Registered Nurse Critical Care Medicine
DX: F11.20 Opioid dependence, uncomplicated (principal)

== ENCOUNTER → 2020-02-14 | Outpatient (CLI) | payer OTHER | END | disposition home or self-care (01) | LOC: RESCLI 00:34 | PROVIDERS: ATTEND Internal Medicine | DX: G89.29 Other chronic pain (principal); K21.9 Gastro-esophageal reflux disease without esophagitis; I25.2 Old myocardial infarction; E78.5 Hyperlipidemia, unspecified; I25.119 Atherosclerotic heart disease of native coronary artery with unspecified angina pectoris; F11.23 Opioid dependence with withdrawal; M17.31 Unilateral post-traumatic osteoarthritis, right knee; I82.511 Chronic embolism and thrombosis of right femoral vein; M17.11 Unilateral primary osteoarthritis, right knee; F15.10 Other stimulant abuse, uncomplicated; M87.039 Idiopathic aseptic necrosis of unspecified carpus; I10 Essential (primary) hypertension; E55.9 Vitamin D deficiency, unspecified; E66.01 Morbid (severe) obesity due to excess calories; F17.210 Nicotine dependence, cigarettes, uncomplicated; Z79.899 Other long term (current) drug therapy; Z95.828 Presence of other vascular implants and grafts; Z98.890 Other specified postprocedural states; Z88.0 Allergy status to penicillin; Z23 Encounter for immunization ==

== ENCOUNTER 2020-04-23 07:37 | Inpatient (IN) | payer OTHER ==
[~2020-04-23] VITALS: Ht 182.9 cm; Wt 125.6 kg
[2020-04-23 07:44] VITALS: BP 167/78
[2020-04-23 08:27] LABS: BASO # 0.1 10*3/uL (0.0-0.1); BASO % 0.8 % (0.0-1.0); EOS # 0.5 10*3/uL (0.0-0.4); EOS % 4.8 % (1.0-4.0); HEMATOCRIT 40.5 % (42.0-52.0); LYMPH # 2.2 10*3/uL (1.3-4.4); LYMPH % 19.7 % (27.0-41.0); MEAN CELL VOLUME 84.7 fl (80.0-94.0); MEAN CORPUSCULAR HGB CONC 31.9 g/dl (33.0-37.0); MEAN PLATELET VOLUME 9.6 fl (9.6-12.3); MONO # 0.9 10*3/uL (0.1-1.0); NEUT # 7.4 10*3/uL (2.3-7.9); NEUT % 66.3 % (47.0-73.0); PLATELET COUNT AUTOMATED 259 10*3/uL (130-400); RED BLOOD COUNT 4.78 10*6/uL (4.50-5.90); RED CELL DISTRI WIDTH 14.5 % (0-14.5); WHITE BLOOD COUNT 11.1 10*3/uL (4.8-10.8)
[2020-04-23 08:37] LABS: ACT PARTIAL THROMBO TIME 32.9 SECONDS (20.0-32.1); INTERNATIONAL NORM RATIO 1.2 (2.0-3.5)
[2020-04-23 08:42] LABS: ALBUMIN 3.2 gm/dl (3.1-4.5); ALKALINE PHOSPHATASE 114 U/L (45-117); BUN 15 mg/dl (7-24); CHLORIDE 112 mmol/L (98-107); CREATININE 1.07 mg/dL (0.70-1.30); POTASSIUM 3.8 mmol/L (3.5-5.1); SGOT/AST 14 IU/L (3-35); SGPT/ALT 23 U/L (12-78); SODIUM 140 mmol/L (136-145); TOTAL PROTEIN 6.7 gm/dL (6.4-8.2)
[2020-04-23 11:47] VITALS: BP 132/82
[2020-04-23] MEDS ORDERED: LIPITOR40 MG PO (11:49)
[2020-04-23] MEDS ORDERED: BUPRENORPHINE (11:49)
[2020-04-23] MEDS ORDERED: XARE20MG PO (11:49)
[2020-04-23] MEDS ORDERED: NALOXONE (11:49)
[2020-04-23] MEDS ORDERED: METOPROLOL SUCC25 M2 PO (11:50)
[2020-04-23] MEDS ORDERED: NEURONTIN300 MG PO (11:51)
[2020-04-23] MEDS ORDERED: ASPIRIN81 M1 PO (11:51)
[2020-04-23 13:52] VITALS: BP 134/82
[2020-04-23 15:00] VITALS: BP 153/85
[2020-04-23] MEDS ORDERED: SUBOXONE 8 MG-1 EACH SL (16:03)
[2020-04-23 20:00] VITALS: BP 132/83
[2020-04-24] VITALS: BP 148/85
[2020-04-24 06:38] LABS: BASO # 0.1 10*3/uL (0.0-0.1); BASO % 0.5 % (0.0-1.0); EOS # 0.3 10*3/uL (0.0-0.4); EOS % 2.1 % (1.0-4.0); HEMATOCRIT 38.1 % (42.0-52.0); LYMPH # 2.3 10*3/uL (1.3-4.4); LYMPH % 16.7 % (27.0-41.0); MEAN CELL VOLUME 83.2 fl (80.0-94.0); MEAN CORPUSCULAR HGB 27.5 pg (27.0-31.0); MEAN CORPUSCULAR HGB CONC 33.1 g/dl (33.0-37.0); MEAN PLATELET VOLUME 10.1 fl (9.6-12.3); MONO # 1.1 10*3/uL (0.1-1.0); MONO % 7.8 % (3.0-9.0); NEUT # 9.8 10*3/uL (2.3-7.9); NEUT % 72.5 % (47.0-73.0); PLATELET COUNT AUTOMATED 265 10*3/uL (130-400); RED BLOOD COUNT 4.58 10*6/uL (4.50-5.90); RED CELL DISTRI WIDTH 14.5 % (0-14.5); WHITE BLOOD COUNT 13.5 10*3/uL (4.8-10.8)
[2020-04-24 07:07] LABS: BUN 9 mg/dl (7-24); CHLORIDE 109 mmol/L (98-107); CREATININE 0.81 mg/dL (0.70-1.30); POTASSIUM 3.8 mmol/L (3.5-5.1); SGOT/AST 11 IU/L (3-35); SGPT/ALT 20 U/L (12-78); SODIUM 138 mmol/L (136-145)
[2020-04-24 07:09] LABS: ALKALINE PHOSPHATASE 103 U/L (45-117); TOTAL PROTEIN 6.6 gm/dL (6.4-8.2)
[2020-04-24 08:00] VITALS: BP 149/81
[2020-04-24 12:00] VITALS: BP 140/85
[2020-04-24 16:00] VITALS: BP 144/78
[2020-04-24 20:00] VITALS: BP 128/73
[2020-04-25] VITALS (10 sets, daily range): BP systolic 116–146; BP diastolic 49–86
[2020-04-25 06:42] LABS: BASO # 0.1 10*3/uL (0.0-0.1); BASO % 0.6 % (0.0-1.0); EOS # 0.4 10*3/uL (0.0-0.4); EOS % 3.2 % (1.0-4.0); HEMATOCRIT 40.6 % (42.0-52.0); LYMPH # 2.6 10*3/uL (1.3-4.4); LYMPH % 19.2 % (27.0-41.0); MEAN CELL VOLUME 84.1 fl (80.0-94.0); MEAN CORPUSCULAR HGB 26.9 pg (27.0-31.0); MEAN PLATELET VOLUME 9.8 fl (9.6-12.3); MONO # 1.1 10*3/uL (0.1-1.0); MONO % 8.3 % (3.0-9.0); NEUT # 9.2 10*3/uL (2.3-7.9); NEUT % 68.4 % (47.0-73.0); PLATELET COUNT AUTOMATED 243 10*3/uL (130-400); RED BLOOD COUNT 4.83 10*6/uL (4.50-5.90); RED CELL DISTRI WIDTH 14.7 % (0-14.5); WHITE BLOOD COUNT 13.5 10*3/uL (4.8-10.8)
[2020-04-25 07:02] LABS: BUN 10 mg/dl (7-24); CHLORIDE 107 mmol/L (98-107); POTASSIUM 3.9 mmol/L (3.5-5.1); SODIUM 137 mmol/L (136-145)
[2020-04-26 07:23] LABS: BUN 13 mg/dl (7-24); CHLORIDE 108 mmol/L (98-107); POTASSIUM 3.8 mmol/L (3.5-5.1); SODIUM 140 mmol/L (136-145)
[2020-04-26 08:00] VITALS: BP 123/59
[2020-04-26 08:30] LABS: BASO % 0.2 % (0.0-1.0); EOS % 0.1 % (1.0-4.0); HEMATOCRIT 37.1 % (42.0-52.0); LYMPH # 1.9 10*3/uL (1.3-4.4); LYMPH % 11.8 % (27.0-41.0); MEAN CELL VOLUME 85.7 fl (80.0-94.0); MEAN CORPUSCULAR HGB CONC 31.5 g/dl (33.0-37.0); MEAN PLATELET VOLUME 10.2 fl (9.6-12.3); MONO # 1.2 10*3/uL (0.1-1.0); MONO % 7.2 % (3.0-9.0); NEUT # 12.8 10*3/uL (2.3-7.9); NEUT % 80.3 % (47.0-73.0); PLATELET COUNT AUTOMATED 255 10*3/uL (130-400); RED BLOOD COUNT 4.33 10*6/uL (4.50-5.90); RED CELL DISTRI WIDTH 14.6 % (0-14.5); WHITE BLOOD COUNT 15.9 10*3/uL (4.8-10.8)
[2020-04-26] MEDS ORDERED: PERCOCET 5-3251 EACH PO (11:16)
[2020-04-26] MEDS ORDERED: VITAMIN D350 MC2 PO (11:16)
[2020-04-26 12:00] VITALS: BP 120/62
== END 2020-04-26 13:47 | disposition home health service (06) | DRG 308 ==
LOC: ED 07:37 → EDHOLD 09:47 → 5E 09:47
PROVIDERS: Emergency Medicine; Internal Medicine; Orthopaedic Surgery; ADMIT Family Medicine; ATTEND Family Medicine
PROC: 0QH804Z Insertion of Internal Fixation Device into Right Femoral Shaft, Open Approach (ICD-10-PCS; principal; 2020-04-25)
PROC: 0QPB04Z Removal of Internal Fixation Device from Right Lower Femur, Open Approach (ICD-10-PCS; 2020-04-25)
DX: S72.351A Displaced comminuted fracture of shaft of right femur, initial encounter for closed fracture (principal); I25.10 Atherosclerotic heart disease of native coronary artery without angina pectoris; E78.5 Hyperlipidemia, unspecified; D68.59 Other primary thrombophilia; R73.9 Hyperglycemia, unspecified; F15.10 Other stimulant abuse, uncomplicated; F12.10 Cannabis abuse, uncomplicated; D72.829 Elevated white blood cell count, unspecified; D64.9 Anemia, unspecified; R00.0 Tachycardia, unspecified; E87.8 Other disorders of electrolyte and fluid balance, not elsewhere classified; E83.41 Hypermagnesemia; F17.210 Nicotine dependence, cigarettes, uncomplicated; E44.0 Moderate protein-calorie malnutrition; I10 Essential (primary) hypertension; M21.061 Valgus deformity, not elsewhere classified, right knee; M17.31 Unilateral post-traumatic osteoarthritis, right knee; Z88.0 Allergy status to penicillin; Z95.5 Presence of coronary angioplasty implant and graft; I25.2 Old myocardial infarction; Z86.718 Personal history of other venous thrombosis and embolism; Z79.01 Long term (current) use of anticoagulants; Z80.8 Family history of malignant neoplasm of other organs or systems; Z84.89 Family history of other specified conditions; Z87.442 Personal history of urinary calculi; Z86.711 Personal history of pulmonary embolism; Z79.899 Other long term (current) drug therapy; Z79.82 Long term (current) use of aspirin; W00.0XXA Fall on same level due to ice and snow, initial encounter; Y93.89 Activity, other specified; Y92.89 Other specified places as the place of occurrence of the external cause; Y99.8 Other external cause status; Z20.822 Contact with and (suspected) exposure to COVID-19; Z68.37 Body mass index [BMI] 37.0-37.9, adult

== ENCOUNTER 2020-04-30 13:09 | Emergency (ER) | payer OTHER ==
[~2020-04-30] VITALS: Ht 182.8 cm; Wt 124.7 kg
[~2020-04-30 13:09] MED LIST changes: +ASPIRIN81 M1 PO; +BUPRENORPHINE; +LIPITOR40 MG PO; +NALOXONE; +NEURONTIN300 MG PO; +PERCOCET 5-3251 EACH PO; +VITAMIN D350 MC2 PO
[2020-04-30 13:53] LABS: BASO # 0.1 10*3/uL (0.0-0.1); BASO % 0.6 % (0.0-1.0); EOS # 0.3 10*3/uL (0.0-0.4); EOS % 2.6 % (1.0-4.0); HEMATOCRIT 37.7 % (42.0-52.0); LYMPH # 1.5 10*3/uL (1.3-4.4); LYMPH % 13.1 % (27.0-41.0); MEAN CELL VOLUME 85.7 fl (80.0-94.0); MEAN CORPUSCULAR HGB CONC 31.6 g/dl (33.0-37.0); MEAN PLATELET VOLUME 9.1 fl (9.6-12.3); MONO # 0.7 10*3/uL (0.1-1.0); MONO % 6.6 % (3.0-9.0); NEUT # 8.5 10*3/uL (2.3-7.9); NEUT % 76.7 % (47.0-73.0); PLATELET COUNT AUTOMATED 349 10*3/uL (130-400); RED CELL DISTRI WIDTH 14.6 % (0-14.5); WHITE BLOOD COUNT 11.1 10*3/uL (4.8-10.8)
[2020-04-30 14:08] LABS: ALBUMIN 2.6 gm/dl (3.1-4.5); ALKALINE PHOSPHATASE 96 U/L (45-117); BUN 13 mg/dl (7-24); CHLORIDE 105 mmol/L (98-107); CREATININE 0.88 mg/dL (0.70-1.30); POTASSIUM 4.2 mmol/L (3.5-5.1); SGOT/AST 13 IU/L (3-35); SGPT/ALT 22 U/L (12-78); SODIUM 136 mmol/L (136-145); TOTAL PROTEIN 6.6 gm/dL (6.4-8.2)
[2020-04-30] MEDS ORDERED: PERCOCET 5-3251 EACH PO (16:42)
== END 2020-04-30 16:45 | disposition home or self-care (01) ==
LOC: ED 13:09
PROVIDERS: Nurse Practitioner
DX: G89.18 Other acute postprocedural pain (principal); Z88.0 Allergy status to penicillin; Z79.899 Other long term (current) drug therapy; Z79.82 Long term (current) use of aspirin; Z71.6 Tobacco abuse counseling

== ENCOUNTER → 2020-05-03 | Outpatient (CLI) | payer OTHER | END | disposition home or self-care (01) | LOC: RESCLI 01:33 | PROVIDERS: ATTEND Internal Medicine | DX: M17.31 Unilateral post-traumatic osteoarthritis, right knee (principal); G89.29 Other chronic pain; I25.119 Atherosclerotic heart disease of native coronary artery with unspecified angina pectoris; M87.039 Idiopathic aseptic necrosis of unspecified carpus; E78.5 Hyperlipidemia, unspecified; I82.511 Chronic embolism and thrombosis of right femoral vein; K21.9 Gastro-esophageal reflux disease without esophagitis; E55.9 Vitamin D deficiency, unspecified; F11.10 Opioid abuse, uncomplicated; F15.10 Other stimulant abuse, uncomplicated; I25.2 Old myocardial infarction; E66.01 Morbid (severe) obesity due to excess calories; M21.061 Valgus deformity, not elsewhere classified, right knee; I50.20 Unspecified systolic (congestive) heart failure; I11.0 Hypertensive heart disease with heart failure; F17.210 Nicotine dependence, cigarettes, uncomplicated; S72.351D Displaced comminuted fracture of shaft of right femur, subsequent encounter for closed fracture with routine healing; X58.XXXD Exposure to other specified factors, subsequent encounter; Z79.82 Long term (current) use of aspirin; Z79.899 Other long term (current) drug therapy; Z95.828 Presence of other vascular implants and grafts; Z98.890 Other specified postprocedural states; Z88.0 Allergy status to penicillin ==

== ENCOUNTER → 2020-05-13 | Outpatient (CLI) | payer OTHER | END | disposition home or self-care (01) | LOC: ORTHO 00:19 | PROVIDERS: ATTEND Orthopaedic Surgery | DX: S72.351D Displaced comminuted fracture of shaft of right femur, subsequent encounter for closed fracture with routine healing (principal); M17.11 Unilateral primary osteoarthritis, right knee; X58.XXXD Exposure to other specified factors, subsequent encounter ==

== ENCOUNTER → 2020-07-01 | Outpatient (CLI) | payer OTHER | END | disposition home or self-care (01) | LOC: RAD 13:12 | PROVIDERS: ATTEND Orthopaedic Surgery | DX: M17.11 Unilateral primary osteoarthritis, right knee (principal); M25.461 Effusion, right knee; M25.761 Osteophyte, right knee; S72.351D Displaced comminuted fracture of shaft of right femur, subsequent encounter for closed fracture with routine healing; X58.XXXD Exposure to other specified factors, subsequent encounter ==

== ENCOUNTER → 2020-09-11 | Outpatient (CLI) | payer OTHER | LOC: ORTHO 05:34 | PROVIDERS: ATTEND Orthopaedic Surgery | DX: M17.11 Unilateral primary osteoarthritis, right knee (principal); S72.351D Displaced comminuted fracture of shaft of right femur, subsequent encounter for closed fracture with routine healing; X58.XXXD Exposure to other specified factors, subsequent encounter ==

== ENCOUNTER → 2020-10-30 | Outpatient (CLI) | payer OTHER ==
[~2020-10-30] MED LIST changes: +LISINOPRIL10 M1 PO; +TOPROL XL25 MG PO
== END | disposition home or self-care (01) ==
LOC: ORTHO 00:17
PROVIDERS: ATTEND Orthopaedic Surgery
DX: S72.321D Displaced transverse fracture of shaft of right femur, subsequent encounter for closed fracture with routine healing (principal); Z96.9 Presence of functional implant, unspecified; X58.XXXD Exposure to other specified factors, subsequent encounter

== ENCOUNTER → 2020-11-12 | Outpatient (CLI) | payer OTHER ==
[2020-11-08 13:20] VITALS: BP 136/88
[~2020-11-12] VITALS: Ht 182.8 cm; Wt 126.1 kg
== END | disposition home or self-care (01) ==
LOC: SDC 11-08 14:00 → LAB 01:22 → SDC 01:22 → EDSTATUS 14:00
PROVIDERS: ATTEND Orthopaedic Surgery
DX: Z01.812 Encounter for preprocedural laboratory examination (principal); M17.31 Unilateral post-traumatic osteoarthritis, right knee; Z20.822 Contact with and (suspected) exposure to COVID-19; I25.2 Old myocardial infarction; I10 Essential (primary) hypertension; Z86.718 Personal history of other venous thrombosis and embolism; Z95.5 Presence of coronary angioplasty implant and graft; Z79.899 Other long term (current) drug therapy

== ENCOUNTER → 2020-11-12 | Outpatient (CLI) | payer OTHER ==
[2020-11-12 14:26] LABS: BASO # 0.1 10*3/uL (0.0-0.1); BASO % 1.1 % (0.0-1.0); EOS # 0.7 10*3/uL (0.0-0.4); EOS % 6.9 % (1.0-4.0); HEMATOCRIT 44.4 % (42.0-52.0); LYMPH # 2.3 10*3/uL (1.3-4.4); LYMPH % 22.3 % (27.0-41.0); MEAN CELL VOLUME 86.4 fl (80.0-94.0); MEAN CORPUSCULAR HGB 27.6 pg (27.0-31.0); MEAN PLATELET VOLUME 9.4 fl (9.6-12.3); MONO # 0.6 10*3/uL (0.1-1.0); MONO % 6.2 % (3.0-9.0); NEUT # 6.4 10*3/uL (2.3-7.9); NEUT % 63.1 % (47.0-73.0); PLATELET COUNT AUTOMATED 311 10*3/uL (130-400); RED BLOOD COUNT 5.14 10*6/uL (4.50-5.90); RED CELL DISTRI WIDTH 14.4 % (0-14.5); WHITE BLOOD COUNT 10.2 10*3/uL (4.8-10.8)
[2020-11-12 14:41] LABS: ALBUMIN 3.6 gm/dl (3.1-4.5); ALKALINE PHOSPHATASE 137 U/L (45-117); BUN 9 mg/dl (7-24); CHLORIDE 106 mmol/L (98-107); CHOLESTEROL 221 mg/dL (<200); CREATININE 1.03 mg/dL (0.70-1.30); LDL CHOLESTEROL 148 mg/dL (9-159); POTASSIUM 4.4 mmol/L (3.5-5.1); SGOT/AST 17 IU/L (3-35); SGPT/ALT 34 U/L (12-78); SODIUM 136 mmol/L (136-145); TOTAL PROTEIN 7.5 gm/dL (6.4-8.2); TRIGLYCERIDES 208 mg/dl (<150)
== END ==
LOC: LAB 14:09
PROVIDERS: ATTEND Internal Medicine Cardiovascular Disease
DX: Z01.810 Encounter for preprocedural cardiovascular examination (principal); I25.10 Atherosclerotic heart disease of native coronary artery without angina pectoris; D68.2 Hereditary deficiency of other clotting factors

== ENCOUNTER → 2020-11-20 | Outpatient (CLI) | payer OTHER | END | disposition home or self-care (01) | LOC: CARD 00:20 | PROVIDERS: ATTEND Internal Medicine Cardiovascular Disease | DX: Z01.810 Encounter for preprocedural cardiovascular examination (principal); R94.31 Abnormal electrocardiogram [ECG] [EKG]; I51.7 Cardiomegaly ==

== ENCOUNTER → 2020-12-24 | Outpatient (CLI) | payer OTHER | END | disposition home or self-care (01) | LOC: RESCLI 00:48 | PROVIDERS: ATTEND Internal Medicine | DX: S72.451D Displaced supracondylar fracture without intracondylar extension of lower end of right femur, subsequent encounter for closed fracture with routine healing (principal); I11.0 Hypertensive heart disease with heart failure; I50.20 Unspecified systolic (congestive) heart failure; M17.31 Unilateral post-traumatic osteoarthritis, right knee; I25.119 Atherosclerotic heart disease of native coronary artery with unspecified angina pectoris; M87.039 Idiopathic aseptic necrosis of unspecified carpus; M12.561 Traumatic arthropathy, right knee; I25.2 Old myocardial infarction; E78.5 Hyperlipidemia, unspecified; I82.511 Chronic embolism and thrombosis of right femoral vein; I10 Essential (primary) hypertension; K21.9 Gastro-esophageal reflux disease without esophagitis; E55.9 Vitamin D deficiency, unspecified; E66.01 Morbid (severe) obesity due to excess calories; F11.10 Opioid abuse, uncomplicated; Z96.9 Presence of functional implant, unspecified; Z86.711 Personal history of pulmonary embolism; X58.XXXD Exposure to other specified factors, subsequent encounter ==

== ENCOUNTER → 2020-12-31 | Outpatient (CLI) | payer OTHER ==
[2020-12-31 17:05] LABS: BASO # 0.1 10*3/uL (0.0-0.1); BASO % 0.7 % (0.0-1.0); EOS # 0.7 10*3/uL (0.0-0.4); EOS % 5.1 % (1.0-4.0); HEMATOCRIT 46.3 % (42.0-52.0); LYMPH # 3.1 10*3/uL (1.3-4.4); MEAN CELL VOLUME 85.3 fl (80.0-94.0); MEAN CORPUSCULAR HGB 27.6 pg (27.0-31.0); MEAN CORPUSCULAR HGB CONC 32.4 g/dl (33.0-37.0); MEAN PLATELET VOLUME 9.9 fl (9.6-12.3); MONO # 0.7 10*3/uL (0.1-1.0); MONO % 4.8 % (3.0-9.0); NEUT # 9.3 10*3/uL (2.3-7.9); NEUT % 67.1 % (47.0-73.0); PLATELET COUNT AUTOMATED 358 10*3/uL (130-400); RED BLOOD COUNT 5.43 10*6/uL (4.50-5.90); RED CELL DISTRI WIDTH 13.4 % (0-14.5); WHITE BLOOD COUNT 13.9 10*3/uL (4.8-10.8)
[2020-12-31 17:18] LABS: ACT PARTIAL THROMBO TIME 32.6 SECONDS (20.0-32.1); INTERNATIONAL NORM RATIO 1.1 (2.0-3.5)
[2020-12-31 17:20] LABS: ALBUMIN 3.7 gm/dl (3.1-4.5); ALKALINE PHOSPHATASE 134 U/L (45-117); BUN 10 mg/dl (7-24); CHLORIDE 106 mmol/L (98-107); CREATININE 1.01 mg/dL (0.70-1.30); POTASSIUM 4.1 mmol/L (3.5-5.1); SGOT/AST 15 IU/L (3-35); SGPT/ALT 33 U/L (12-78); SODIUM 136 mmol/L (136-145); TOTAL PROTEIN 7.8 gm/dL (6.4-8.2)
== END | disposition home or self-care (01) ==
LOC: LAB 16:27
PROVIDERS: ATTEND Internal Medicine Cardiovascular Disease
DX: Z01.818 Encounter for other preprocedural examination (principal); R07.9 Chest pain, unspecified

== ENCOUNTER → 2021-01-02 | Outpatient (CLI) | payer OTHER ==
[~2021-01-02] MED LIST changes: +METOPROLOL SUCC50 M2 PO
== END ==
LOC: LAB 15:59 → COVID19 15:59
PROVIDERS: ATTEND Internal Medicine
DX: Z20.822 Contact with and (suspected) exposure to COVID-19 (principal)

== ENCOUNTER → 2021-01-08 | Outpatient (CLI) | payer OTHER | END | disposition home or self-care (01) | LOC: ORTHO 00:36 | PROVIDERS: ATTEND Orthopaedic Surgery | DX: S72.451D Displaced supracondylar fracture without intracondylar extension of lower end of right femur, subsequent encounter for closed fracture with routine healing (principal); M17.11 Unilateral primary osteoarthritis, right knee; M25.761 Osteophyte, right knee; X58.XXXD Exposure to other specified factors, subsequent encounter ==

== ENCOUNTER 2021-01-17 14:56 | Emergency (ER) | payer OTHER ==
[~2021-01-17 14:56] MED LIST changes: -METOPROLOL SUCC50 M2 PO
[2021-01-17] MEDS ORDERED: METOPROLOL SUCC50 M2 PO (16:45)
== END 2021-01-17 17:52 | disposition left against medical advice (07) ==
LOC: ED 14:56
DX: M79.601 Pain in right arm (principal); Z53.21 Procedure and treatment not carried out due to patient leaving prior to being seen by health care provider

== ENCOUNTER → 2021-01-21 | Outpatient (CLI) | payer OTHER ==
[~2021-01-21] MED LIST changes: +METOPROLOL SUCC50 M2 PO
== END | disposition home or self-care (01) ==
LOC: RESCLI 01:21
PROVIDERS: ATTEND Internal Medicine
DX: G89.29 Other chronic pain (principal); M17.31 Unilateral post-traumatic osteoarthritis, right knee; I25.119 Atherosclerotic heart disease of native coronary artery with unspecified angina pectoris; M87.039 Idiopathic aseptic necrosis of unspecified carpus; I25.2 Old myocardial infarction; E78.5 Hyperlipidemia, unspecified; I82.511 Chronic embolism and thrombosis of right femoral vein; K21.9 Gastro-esophageal reflux disease without esophagitis; E55.9 Vitamin D deficiency, unspecified; E66.01 Morbid (severe) obesity due to excess calories; I11.0 Hypertensive heart disease with heart failure; I50.20 Unspecified systolic (congestive) heart failure; F11.10 Opioid abuse, uncomplicated; Z96.9 Presence of functional implant, unspecified; Z86.711 Personal history of pulmonary embolism; Z79.82 Long term (current) use of aspirin; Z79.899 Other long term (current) drug therapy; Z95.818 Presence of other cardiac implants and grafts

== ENCOUNTER → 2021-02-04 | Day surgery (SDC) | payer OTHER ==
[2021-01-31 13:55] VITALS: BP 135/73
[2021-01-31 14:56] LABS: BASO # 0.2 10*3/uL (0.0-0.1); EOS # 0.8 10*3/uL (0.0-0.4); HEMATOCRIT 44.3 % (42.0-52.0); LYMPH # 3.9 10*3/uL (1.3-4.4); LYMPH % 24.9 % (27.0-41.0); MEAN CELL VOLUME 85.7 fl (80.0-94.0); MEAN CORPUSCULAR HGB 27.9 pg (27.0-31.0); MEAN CORPUSCULAR HGB CONC 32.5 g/dl (33.0-37.0); MEAN PLATELET VOLUME 9.7 fl (9.6-12.3); MONO % 6.3 % (3.0-9.0); NEUT # 9.7 10*3/uL (2.3-7.9); NEUT % 62.5 % (47.0-73.0); PLATELET COUNT AUTOMATED 286 10*3/uL (130-400); RED BLOOD COUNT 5.17 10*6/uL (4.50-5.90); RED CELL DISTRI WIDTH 13.2 % (0-14.5); WHITE BLOOD COUNT 15.5 10*3/uL (4.8-10.8)
[2021-01-31 15:21] LABS: BUN 10 mg/dl (7-24); CHLORIDE 110 mmol/L (98-107); CREATININE 0.96 mg/dL (0.70-1.30); SODIUM 137 mmol/L (136-145)
[~2021-02-04] VITALS: Ht 182.8 cm; Wt 133.8 kg
[2021-02-04 09:10] VITALS: BP 137/80
[2021-02-04 12:34] VITALS: BP 126/45
[2021-02-04 12:49] VITALS: BP 126/58
[2021-02-04 13:04] VITALS: BP 147/84
== END | disposition home or self-care (01) ==
LOC: SDC 01-31 13:15
PROVIDERS: ATTEND Orthopaedic Surgery
DX: Z47.2 Encounter for removal of internal fixation device (principal); M12.561 Traumatic arthropathy, right knee; I10 Essential (primary) hypertension; I25.2 Old myocardial infarction; Z86.718 Personal history of other venous thrombosis and embolism; Z95.5 Presence of coronary angioplasty implant and graft; I25.10 Atherosclerotic heart disease of native coronary artery without angina pectoris; F17.210 Nicotine dependence, cigarettes, uncomplicated; Z88.0 Allergy status to penicillin; Z79.899 Other long term (current) drug therapy

== ENCOUNTER → 2021-02-19 | Outpatient (CLI) | payer OTHER | END | disposition home or self-care (01) | LOC: ORTHO 00:34 | PROVIDERS: ATTEND Orthopaedic Surgery | DX: M17.11 Unilateral primary osteoarthritis, right knee (principal); S72.451D Displaced supracondylar fracture without intracondylar extension of lower end of right femur, subsequent encounter for closed fracture with routine healing; X58.XXXD Exposure to other specified factors, subsequent encounter; Z96.9 Presence of functional implant, unspecified ==

== ENCOUNTER → 2021-02-25 | Outpatient (CLI) | payer OTHER | END | disposition home or self-care (01) | LOC: RESCLI 02:08 | PROVIDERS: ATTEND Internal Medicine | DX: I10 Essential (primary) hypertension (principal); I25.119 Atherosclerotic heart disease of native coronary artery with unspecified angina pectoris; F11.10 Opioid abuse, uncomplicated; I82.511 Chronic embolism and thrombosis of right femoral vein; G89.29 Other chronic pain; G62.9 Polyneuropathy, unspecified; I73.9 Peripheral vascular disease, unspecified; Z71.6 Tobacco abuse counseling; Z79.899 Other long term (current) drug therapy; Z98.890 Other specified postprocedural states; Z88.8 Allergy status to other drugs, medicaments and biological substances ==

== ENCOUNTER → 2021-02-28 | Outpatient (CLI) | payer OTHER | END | disposition home or self-care (01) | LOC: US 13:14 | PROVIDERS: ATTEND Internal Medicine | DX: I73.9 Peripheral vascular disease, unspecified (principal) ==

== ENCOUNTER 2021-03-25 11:55 | Emergency (ER) | payer OTHER ==
[~2021-03-25] VITALS: Ht 182.8 cm; Wt 129.3 kg
[2021-03-25] MEDS ORDERED: BENZONATATE100 M1 PO (13:36)
[2021-03-25] MEDS ORDERED: ZYRTEC10 M2 PO (13:37)
== END 2021-03-25 14:15 | disposition home or self-care (01) ==
LOC: ED 11:55
DX: R05.9 Cough, unspecified (principal); Z20.822 Contact with and (suspected) exposure to COVID-19; R50.9 Fever, unspecified; F17.210 Nicotine dependence, cigarettes, uncomplicated; Z88.0 Allergy status to penicillin; Z79.899 Other long term (current) drug therapy; Z79.82 Long term (current) use of aspirin

== ENCOUNTER → 2021-05-27 | Outpatient (CLI) | payer OTHER ==
[~2021-05-27] MED LIST changes: +BENZONATATE100 M1 PO; +ZYRTEC10 M2 PO
[2021-05-27 12:05] LABS: BASO # 0.1 10*3/uL (0.0-0.1); BASO % 1.2 % (0.0-1.0); EOS # 0.6 10*3/uL (0.0-0.4); EOS % 5.4 % (1.0-4.0); LYMPH # 2.4 10*3/uL (1.3-4.4); LYMPH % 23.5 % (27.0-41.0); MEAN CELL VOLUME 85.5 fl (80.0-94.0); MEAN CORPUSCULAR HGB 28.3 pg (27.0-31.0); MEAN CORPUSCULAR HGB CONC 33.1 g/dl (33.0-37.0); MEAN PLATELET VOLUME 9.8 fl (9.6-12.3); MONO % 9.2 % (3.0-9.0); NEUT # 6.2 10*3/uL (2.3-7.9); NEUT % 60.3 % (47.0-73.0); PLATELET COUNT AUTOMATED 285 10*3/uL (130-400); RED BLOOD COUNT 4.91 10*6/uL (4.50-5.90); RED CELL DISTRI WIDTH 13.4 % (0-14.5); WHITE BLOOD COUNT 10.3 10*3/uL (4.8-10.8)
[2021-05-27 12:17] LABS: ACT PARTIAL THROMBO TIME 38.1 SECONDS (20.0-32.1); INTERNATIONAL NORM RATIO 1.1 (2.0-3.5)
[2021-05-27 12:22] LABS: BUN 14 mg/dl (7-24); CHLORIDE 108 mmol/L (98-107); CREATININE 0.92 mg/dL (0.70-1.30); POTASSIUM 4.3 mmol/L (3.5-5.1); SODIUM 139 mmol/L (136-145)
== END | disposition home or self-care (01) ==
LOC: RESCLI 02:13
PROVIDERS: Hospitalist; ATTEND Emergency Medicine
DX: G89.29 Other chronic pain (principal); S72.451D Displaced supracondylar fracture without intracondylar extension of lower end of right femur, subsequent encounter for closed fracture with routine healing; M17.31 Unilateral post-traumatic osteoarthritis, right knee; I25.119 Atherosclerotic heart disease of native coronary artery with unspecified angina pectoris; I25.2 Old myocardial infarction; E78.5 Hyperlipidemia, unspecified; I82.511 Chronic embolism and thrombosis of right femoral vein; I10 Essential (primary) hypertension; K21.9 Gastro-esophageal reflux disease without esophagitis; E55.9 Vitamin D deficiency, unspecified; F11.10 Opioid abuse, uncomplicated; Z86.711 Personal history of pulmonary embolism; E66.01 Morbid (severe) obesity due to excess calories; I50.20 Unspecified systolic (congestive) heart failure; G62.9 Polyneuropathy, unspecified; I73.9 Peripheral vascular disease, unspecified; I70.201 Unspecified atherosclerosis of native arteries of extremities, right leg; Z01.818 Encounter for other preprocedural examination; Z72.0 Tobacco use; Z88.8 Allergy status to other drugs, medicaments and biological substances; Z79.899 Other long term (current) drug therapy; X58.XXXD Exposure to other specified factors, subsequent encounter

== ENCOUNTER 2021-07-22 10:14 | Emergency (ER) | payer OTHER ==
[~2021-07-22] VITALS: Ht 182.8 cm; Wt 122.5 kg
[2021-07-22] MEDS ORDERED: LIPITOR20 MG PO (10:56)
[2021-07-22 11:20] LABS: BASO # 0.1 10*3/uL (0.0-0.1); BASO % 0.7 % (0.0-1.0); EOS # 0.3 10*3/uL (0.0-0.4); EOS % 3.9 % (1.0-4.0); HEMATOCRIT 38.3 % (42.0-52.0); LYMPH # 1.7 10*3/uL (1.3-4.4); LYMPH % 19.5 % (27.0-41.0); MEAN CELL VOLUME 86.3 fl (80.0-94.0); MEAN CORPUSCULAR HGB 28.2 pg (27.0-31.0); MEAN CORPUSCULAR HGB CONC 32.6 g/dl (33.0-37.0); MEAN PLATELET VOLUME 9.4 fl (9.6-12.3); MONO # 0.6 10*3/uL (0.1-1.0); MONO % 6.7 % (3.0-9.0); NEUT # 5.9 10*3/uL (2.3-7.9); PLATELET COUNT AUTOMATED 281 10*3/uL (130-400); RED BLOOD COUNT 4.44 10*6/uL (4.50-5.90); RED CELL DISTRI WIDTH 13.7 % (0-14.5); WHITE BLOOD COUNT 8.5 10*3/uL (4.8-10.8)
[2021-07-22 11:30] LABS: ACT PARTIAL THROMBO TIME 39.5 SECONDS (20.0-32.1); INTERNATIONAL NORM RATIO 1.2 (2.0-3.5)
[2021-07-22 11:35] LABS: ALKALINE PHOSPHATASE 96 U/L (45-117); BUN 11 mg/dl (7-24); CHLORIDE 108 mmol/L (98-107); CREATININE 0.89 mg/dL (0.70-1.30); POTASSIUM 4.1 mmol/L (3.5-5.1); SGOT/AST 12 IU/L (3-35); SGPT/ALT 23 U/L (12-78); SODIUM 134 mmol/L (136-145)
[2021-07-22] MEDS ORDERED: VIBRA-TAB100 MG PO (15:04)
== END 2021-07-22 15:30 | disposition left against medical advice (07) ==
LOC: ED 10:14
PROVIDERS: Internal Medicine
DX: L03.115 Cellulitis of right lower limb (principal); M00.9 Pyogenic arthritis, unspecified; Z88.0 Allergy status to penicillin; Z79.899 Other long term (current) drug therapy; Z79.82 Long term (current) use of aspirin; Z90.89 Acquired absence of other organs; Z98.890 Other specified postprocedural states; F17.210 Nicotine dependence, cigarettes, uncomplicated

== ENCOUNTER 2021-08-12 13:39 | Emergency (ER) | payer OTHER ==
[~2021-08-12] VITALS: Ht 182.8 cm; Wt 113.4 kg
[~2021-08-12 13:39] MED LIST changes: +LIPITOR20 MG PO; +VIBRA-TAB100 MG PO
[2021-08-12 17:18] LABS: BASO # 0.1 10*3/uL (0.0-0.1); BASO % 0.6 % (0.0-1.0); EOS # 0.2 10*3/uL (0.0-0.4); EOS % 1.8 % (1.0-4.0); HEMATOCRIT 37.5 % (42.0-52.0); LYMPH # 1.6 10*3/uL (1.3-4.4); LYMPH % 18.8 % (27.0-41.0); MEAN CELL VOLUME 85.6 fl (80.0-94.0); MEAN CORPUSCULAR HGB 27.4 pg (27.0-31.0); MEAN PLATELET VOLUME 9.4 fl (9.6-12.3); MONO # 0.6 10*3/uL (0.1-1.0); MONO % 7.4 % (3.0-9.0); NEUT # 5.9 10*3/uL (2.3-7.9); NEUT % 71.2 % (47.0-73.0); PLATELET COUNT AUTOMATED 341 10*3/uL (130-400); RED BLOOD COUNT 4.38 10*6/uL (4.50-5.90); RED CELL DISTRI WIDTH 13.3 % (0-14.5); WHITE BLOOD COUNT 8.4 10*3/uL (4.8-10.8)
[2021-08-12 17:34] LABS: ALKALINE PHOSPHATASE 95 U/L (45-117); BUN 10 mg/dl (7-24); CHLORIDE 105 mmol/L (98-107); CREATININE 0.85 mg/dL (0.70-1.30); POTASSIUM 4.4 mmol/L (3.5-5.1); SGOT/AST 15 IU/L (3-35); SGPT/ALT 19 U/L (12-78); SODIUM 135 mmol/L (136-145)
== END 2021-08-12 23:14 | disposition short-term general hospital (02) ==
LOC: ED 13:39
PROVIDERS: Emergency Medicine
DX: M00.861 Arthritis due to other bacteria, right knee (principal)

== ENCOUNTER 2021-08-30 19:34 | Emergency (ER) | payer OTHER ==
[~2021-08-30] VITALS: Ht 182.8 cm; Wt 113.4 kg
== END 2021-08-30 20:26 | disposition home or self-care (01) ==
LOC: ED 19:34
DX: Z48.01 Encounter for change or removal of surgical wound dressing (principal)

== ENCOUNTER 2021-09-08 05:05 | Emergency (ER) | payer OTHER ==
[~2021-09-08] VITALS: Ht 182.8 cm; Wt 111.1 kg
[2021-09-08 06:00] LABS: ALKALINE PHOSPHATASE 105 U/L (45-117); BUN 18 mg/dl (7-24); CHLORIDE 111 mmol/L (98-107); CREATININE 1.33 mg/dL (0.70-1.30); POTASSIUM 4.1 mmol/L (3.5-5.1); SGOT/AST 22 IU/L (3-35); SGPT/ALT 30 U/L (12-78); SODIUM 142 mmol/L (136-145); TOTAL PROTEIN 6.9 gm/dL (6.4-8.2)
[2021-09-08 06:06] LABS: BASO # 0.1 10*3/uL (0.0-0.1); BASO % 0.7 % (0.0-1.0); EOS # 0.4 10*3/uL (0.0-0.4); EOS % 4.9 % (1.0-4.0); HEMATOCRIT 35.1 % (42.0-52.0); LYMPH % 28.4 % (27.0-41.0); MEAN CELL VOLUME 84.8 fl (80.0-94.0); MEAN CORPUSCULAR HGB 27.3 pg (27.0-31.0); MEAN CORPUSCULAR HGB CONC 32.2 g/dl (33.0-37.0); MEAN PLATELET VOLUME 9.9 fl (9.6-12.3); MONO # 0.6 10*3/uL (0.1-1.0); MONO % 8.2 % (3.0-9.0); NEUT # 4.1 10*3/uL (2.3-7.9); PLATELET COUNT AUTOMATED 302 10*3/uL (130-400); RED BLOOD COUNT 4.14 10*6/uL (4.50-5.90); RED CELL DISTRI WIDTH 15.7 % (0-14.5); WHITE BLOOD COUNT 7.2 10*3/uL (4.8-10.8)
== END 2021-09-08 14:00 | disposition short-term general hospital (02) ==
LOC: ED 05:05
PROVIDERS: Internal Medicine
DX: T81.49XA Infection following a procedure, other surgical site, initial encounter (principal); Y92.89 Other specified places as the place of occurrence of the external cause

== ENCOUNTER → 2022-01-07 | Outpatient (CLI) | payer OTHER ==
[2022-01-07 10:34] LABS: BASO # 0.1 10*3/uL (0.0-0.1); EOS # 0.6 10*3/uL (0.0-0.4); EOS % 7.2 % (1.0-4.0); HEMATOCRIT 39.1 % (42.0-52.0); LYMPH # 1.9 10*3/uL (1.3-4.4); LYMPH % 22.3 % (27.0-41.0); MEAN CELL VOLUME 82.7 fl (80.0-94.0); MEAN CORPUSCULAR HGB 25.2 pg (27.0-31.0); MEAN CORPUSCULAR HGB CONC 30.4 g/dl (33.0-37.0); MONO # 0.6 10*3/uL (0.1-1.0); MONO % 6.8 % (3.0-9.0); NEUT # 5.2 10*3/uL (2.3-7.9); NEUT % 62.3 % (47.0-73.0); PLATELET COUNT AUTOMATED 305 10*3/uL (130-400); RED BLOOD COUNT 4.73 10*6/uL (4.50-5.90); RED CELL DISTRI WIDTH 15.9 % (0-14.5); WHITE BLOOD COUNT 8.3 10*3/uL (4.8-10.8)
[2022-01-07 11:00] LABS: BUN 17 mg/dl (7-24); CHLORIDE 114 mmol/L (98-107); CREATININE 1.01 mg/dL (0.70-1.30); POTASSIUM 4.3 mmol/L (3.5-5.1); SGOT/AST 14 IU/L (3-35); SGPT/ALT 17 U/L (12-78); SODIUM 141 mmol/L (136-145)
[2022-01-07 11:02] LABS: ALKALINE PHOSPHATASE 96 U/L (45-117)
[2022-01-07 12:13] LABS: CHOLESTEROL 131 mg/dL (<200); TRIGLYCERIDES 133 mg/dl (<150)
[2022-01-07 12:16] LABS: LDL CHOLESTEROL 68 mg/dL (9-159)
[2022-01-08 06:07] LABS: HBSAG Negative (Negative); HEP B CORE AB, IGM Negative (Negative); HEPATITIS C ANTIBODY <0.1 (0.0-0.9)
== END | disposition home or self-care (01) ==
LOC: RESCLI 01:02 → LAB 01:02 → RESCLI 16:38
PROVIDERS: Physician Assistant Medical; Student in an Organized Health Care Education/Training Program; ATTEND Student in an Organized Health Care Education/Training Program
DX: I82.511 Chronic embolism and thrombosis of right femoral vein (principal); E78.5 Hyperlipidemia, unspecified; I25.119 Atherosclerotic heart disease of native coronary artery with unspecified angina pectoris; I10 Essential (primary) hypertension; K21.9 Gastro-esophageal reflux disease without esophagitis; F11.23 Opioid dependence with withdrawal; L08.9 Local infection of the skin and subcutaneous tissue, unspecified; G62.9 Polyneuropathy, unspecified; I73.9 Peripheral vascular disease, unspecified; F17.200 Nicotine dependence, unspecified, uncomplicated; F14.11 Cocaine abuse, in remission; F11.20 Opioid dependence, uncomplicated; Z72.89 Other problems related to lifestyle; Z88.0 Allergy status to penicillin; Z98.890 Other specified postprocedural states; Z79.82 Long term (current) use of aspirin; Z79.01 Long term (current) use of anticoagulants; Z79.899 Other long term (current) drug therapy

== ENCOUNTER 2022-05-07 07:41 | Emergency (ER) | payer OTHER ==
[~2022-05-07] VITALS: Wt 120.2 kg
== END 2022-05-07 10:27 | disposition home or self-care (01) ==
LOC: ED 07:41
DX: S69.92XA Unspecified injury of left wrist, hand and finger(s), initial encounter (principal); I10 Essential (primary) hypertension; Z86.718 Personal history of other venous thrombosis and embolism; F17.210 Nicotine dependence, cigarettes, uncomplicated; F19.10 Other psychoactive substance abuse, uncomplicated; Z88.0 Allergy status to penicillin; Z90.89 Acquired absence of other organs; Z98.890 Other specified postprocedural states; Z96.651 Presence of right artificial knee joint; W01.0XXA Fall on same level from slipping, tripping and stumbling without subsequent striking against object, initial encounter; Y93.89 Activity, other specified; Y92.9 Unspecified place or not applicable; Y99.8 Other external cause status

== ENCOUNTER → 2022-07-08 | Outpatient (CLI) | payer OTHER ==
[2022-07-08 12:32] LABS: BASO # 0.1 10*3/uL (0.0-0.1); BASO % 0.8 % (0.0-1.0); EOS # 0.3 10*3/uL (0.0-0.4); HEMATOCRIT 44.6 % (42.0-52.0); LYMPH # 2.4 10*3/uL (1.3-4.4); LYMPH % 21.3 % (27.0-41.0); MEAN CELL VOLUME 83.5 fl (80.0-94.0); MEAN CORPUSCULAR HGB 27.2 pg (27.0-31.0); MEAN CORPUSCULAR HGB CONC 32.5 g/dl (33.0-37.0); MEAN PLATELET VOLUME 9.2 fl (9.6-12.3); MONO # 0.7 10*3/uL (0.1-1.0); MONO % 6.5 % (3.0-9.0); NEUT # 7.8 10*3/uL (2.3-7.9); NEUT % 68.1 % (47.0-73.0); PLATELET COUNT AUTOMATED 346 10*3/uL (130-400); RED BLOOD COUNT 5.34 10*6/uL (4.50-5.90); RED CELL DISTRI WIDTH 13.2 % (0-14.5); WHITE BLOOD COUNT 11.4 10*3/uL (4.8-10.8)
[2022-07-08 12:56] LABS: ALKALINE PHOSPHATASE 95 U/L (46-116); BUN 8 mg/dl (9-23); CHLORIDE 107 mmol/L (98-107); CHOLESTEROL 176 mg/dL (<200); LDL CHOLESTEROL 125 mg/dL (9-159); POTASSIUM 4.1 mmol/L (3.4-5.1); SGPT/ALT 21 U/L (10-49); TOTAL PROTEIN 7.4 gm/dL (6.0-8.0); TRIGLYCERIDES 97 mg/dl (<150)
== END | disposition home or self-care (01) ==
LOC: RESCLI 01:32
PROVIDERS: Student in an Organized Health Care Education/Training Program; ATTEND Student in an Organized Health Care Education/Training Program
DX: M87.039 Idiopathic aseptic necrosis of unspecified carpus (principal); B99.9 Unspecified infectious disease; I25.119 Atherosclerotic heart disease of native coronary artery with unspecified angina pectoris; I82.511 Chronic embolism and thrombosis of right femoral vein; M79.89 Other specified soft tissue disorders; E78.5 Hyperlipidemia, unspecified; G62.9 Polyneuropathy, unspecified; Z71.6 Tobacco abuse counseling; D64.9 Anemia, unspecified; Z87.891 Personal history of nicotine dependence; Z88.8 Allergy status to other drugs, medicaments and biological substances; Z98.890 Other specified postprocedural states; Z79.899 Other long term (current) drug therapy

== ENCOUNTER → 2022-09-07 | Outpatient (CLI) | payer OTHER | END | disposition home or self-care (01) | LOC: ORTHO 02:30 | PROVIDERS: ATTEND Orthopaedic Surgery | DX: M25.561 Pain in right knee (principal) ==

== ENCOUNTER 2022-09-19 16:01 | Emergency (ER) | payer OTHER ==
[~2022-09-19] VITALS: Ht 182.8 cm; Wt 108.9 kg
[2022-09-19 16:46] LABS: BASO # 0.1 10*3/uL (0.0-0.1); BASO % 0.7 % (0.0-1.0); EOS # 0.3 10*3/uL (0.0-0.4); EOS % 2.4 % (1.0-4.0); HEMATOCRIT 42.3 % (42.0-52.0); LYMPH # 1.6 10*3/uL (1.3-4.4); LYMPH % 15.2 % (27.0-41.0); MEAN CELL VOLUME 83.4 fl (80.0-94.0); MEAN CORPUSCULAR HGB 27.8 pg (27.0-31.0); MEAN CORPUSCULAR HGB CONC 33.3 g/dl (33.0-37.0); MEAN PLATELET VOLUME 9.4 fl (9.6-12.3); MONO # 0.5 10*3/uL (0.1-1.0); MONO % 4.2 % (3.0-9.0); NEUT # 8.2 10*3/uL (2.3-7.9); PLATELET COUNT AUTOMATED 256 10*3/uL (130-400); RED BLOOD COUNT 5.07 10*6/uL (4.50-5.90); RED CELL DISTRI WIDTH 14.6 % (0-14.5); WHITE BLOOD COUNT 10.7 10*3/uL (4.8-10.8)
[2022-09-19 17:20] LABS: ALKALINE PHOSPHATASE 104 U/L (46-116); CHLORIDE 110 mmol/L (98-107); CPK 129 U/L (34-171); POTASSIUM 3.8 mmol/L (3.4-5.1); SGPT/ALT 16 U/L (10-49); TOTAL PROTEIN 6.8 gm/dL (6.0-8.0)
[2022-09-19 17:23] LABS: BUN < 5 mg/dl (9-23); ETHYL ALCOHOL < 3.0 mg/dl (<3)
[2022-09-19 17:56] LABS: BILIRUBIN Negative (Negative); BLOOD Negative (Negative); CLARITY Clear (Clear); COLOR Yellow (Yellow); GLUCOSE Negative (Negative); KETONE Negative (Negative); LEUKO ESTERASE Negative (Negative); NITRITE Negative (Negative)
[2022-09-19 18:03] LABS: URINE AMPHETAMINES Negative (1000ng/ml); URINE BARBITURATES Negative (200ng/ml); URINE BENZODIAZEPINES Negative (200ng/ml); URINE CANNABINOIDS (THC) Negative (50ng/ml); URINE COCAINE Positive (300ng/ml); URINE METHADONE Negative (300ng/ml); URINE OPIATES Negative (300ng/ml); URINE PHENCYCLIDINE Negative (25ng/ml)
[2022-09-19 18:13] LABS: BACTERIA 1+; EPITHELIAL CELLS 0-2
== END 2022-09-20 00:57 ==
LOC: ED 16:01
PROVIDERS: Emergency Medicine
DX: S61.512A Laceration without foreign body of left wrist, initial encounter (principal); F43.21 Adjustment disorder with depressed mood; F32.3 Major depressive disorder, single episode, severe with psychotic features; I25.2 Old myocardial infarction; I10 Essential (primary) hypertension; Z86.718 Personal history of other venous thrombosis and embolism; E78.00 Pure hypercholesterolemia, unspecified; Z79.899 Other long term (current) drug therapy; Z88.0 Allergy status to penicillin; Z90.89 Acquired absence of other organs; Z98.890 Other specified postprocedural states; Z96.651 Presence of right artificial knee joint; F19.10 Other psychoactive substance abuse, uncomplicated; F17.210 Nicotine dependence, cigarettes, uncomplicated; F14.10 Cocaine abuse, uncomplicated; W26.8XXA Contact with other sharp object(s), not elsewhere classified, initial encounter; Y93.89 Activity, other specified; Y92.89 Other specified places as the place of occurrence of the external cause; Y99.8 Other external cause status

== ENCOUNTER 2022-10-21 09:56 | Emergency (ER) | payer OTHER ==
[~2022-10-21] VITALS: Wt 104.3 kg
[2022-10-21 11:29] LABS: BASO % 0.2 % (0.0-1.0); EOS # 0.2 10*3/uL (0.0-0.4); EOS % 1.5 % (1.0-4.0); HEMATOCRIT 43.6 % (42.0-52.0); LYMPH # 2.2 10*3/uL (1.3-4.4); LYMPH % 15.9 % (27.0-41.0); MEAN CELL VOLUME 84.2 fl (80.0-94.0); MEAN CORPUSCULAR HGB CONC 33.3 g/dl (33.0-37.0); MEAN PLATELET VOLUME 9.9 fl (9.6-12.3); MONO # 0.7 10*3/uL (0.1-1.0); MONO % 4.9 % (3.0-9.0); NEUT # 10.4 10*3/uL (2.3-7.9); NEUT % 77.2 % (47.0-73.0); PLATELET COUNT AUTOMATED 264 10*3/uL (130-400); RED BLOOD COUNT 5.18 10*6/uL (4.50-5.90); RED CELL DISTRI WIDTH 14.6 % (0-14.5); WHITE BLOOD COUNT 13.5 10*3/uL (4.8-10.8)
[2022-10-21 11:52] LABS: ACT PARTIAL THROMBO TIME 30.2 SECONDS (20.0-32.1)
[2022-10-21 11:58] LABS: ALKALINE PHOSPHATASE 107 U/L (46-116); BUN 11 mg/dl (9-23); CHLORIDE 106 mmol/L (98-107); LIPASE 30 U/L (12-53); SGPT/ALT 11 U/L (10-49); TOTAL PROTEIN 6.9 gm/dL (6.0-8.0)
[2022-10-21] MEDS ORDERED: PREDNISONE50 MG PO (13:12)
== END 2022-10-21 13:29 | disposition home or self-care (01) ==
LOC: ED 09:56
PROVIDERS: Emergency Medicine
DX: L25.9 Unspecified contact dermatitis, unspecified cause (principal); I10 Essential (primary) hypertension; I25.2 Old myocardial infarction; Z86.718 Personal history of other venous thrombosis and embolism; E78.00 Pure hypercholesterolemia, unspecified; Z88.0 Allergy status to penicillin; Z90.89 Acquired absence of other organs; Z98.890 Other specified postprocedural states; F17.200 Nicotine dependence, unspecified, uncomplicated; F19.10 Other psychoactive substance abuse, uncomplicated

== ENCOUNTER 2022-10-23 11:17 | Emergency (ER) | payer OTHER ==
[~2022-10-23] VITALS: Ht 182.8 cm; Wt 104.3 kg
[~2022-10-23 11:17] MED LIST changes: +PREDNISONE50 MG PO
[2022-10-23] MEDS ORDERED: CEPHALEXIN500 M1 PO (12:36)
[2022-10-23] MEDS ORDERED: TRIAMCINOLONE430 GM TD (12:36)
[2022-10-23] MEDS ORDERED: ELIMITE 5%60 GM T (12:36)
[2022-10-23] MEDS ORDERED: PREDNISONE20 M1 PO (12:36)
== END 2022-10-23 12:44 | disposition home or self-care (01) ==
LOC: ED 11:17
DX: R21 Rash and other nonspecific skin eruption (principal); N39.0 Urinary tract infection, site not specified; F32.A Depression, unspecified; F41.9 Anxiety disorder, unspecified; I10 Essential (primary) hypertension; I25.2 Old myocardial infarction; Z86.718 Personal history of other venous thrombosis and embolism; E78.00 Pure hypercholesterolemia, unspecified; Z88.0 Allergy status to penicillin; Z90.89 Acquired absence of other organs; Z98.890 Other specified postprocedural states; Z96.651 Presence of right artificial knee joint; F19.10 Other psychoactive substance abuse, uncomplicated; F17.200 Nicotine dependence, unspecified, uncomplicated

== ENCOUNTER → 2022-10-30 | Outpatient (CLI) | payer OTHER ==
[~2022-10-30] MED LIST changes: +CEPHALEXIN500 M1 PO; +ELIMITE 5%60 GM T; +PREDNISONE20 M1 PO; +TRIAMCINOLONE430 GM TD
== END | disposition home or self-care (01) ==
LOC: RAD 13:49
PROVIDERS: ATTEND Orthopaedic Surgery
DX: M25.561 Pain in right knee (principal)

== ENCOUNTER → 2022-11-12 | Day surgery (SDC) | payer OTHER ==
[2022-11-09 13:30] VITALS: BP 133/72
[2022-11-09 15:30] LABS: ACT PARTIAL THROMBO TIME 28.2 SECONDS (20.0-32.1)
[2022-11-09 15:57] LABS: BUN 12 mg/dl (9-23); CHLORIDE 106 mmol/L (98-107); POTASSIUM 4.5 mmol/L (3.4-5.1)
[~2022-11-12] VITALS: Ht 182.8 cm; Wt 108.9 kg
[2022-11-12 09:30] VITALS: BP 108/61
[2022-11-12 11:07] VITALS: BP 91/42
[2022-11-12 11:22] VITALS: BP 104/64
[2022-11-12 11:37] VITALS: BP 115/65
[2022-11-12 11:52] VITALS: BP 106/62
[2022-11-12 12:07] VITALS: BP 122/62
[2022-11-13 10:07] LABS: ACID FAST SPEC PROCESSING Tissue Grinding (.)
[2022-11-13 10:07] LABS: ACID FAST SPEC PROCESSING Tissue Grinding (.)
[2022-11-13 10:07] LABS: ACID FAST SPEC PROCESSING Tissue Grinding (.)
[2022-11-13 10:07] LABS: ACID FAST SPEC PROCESSING Tissue Grinding (.)
== END ==
LOC: SDC 11-09 14:00
PROVIDERS: ATTEND Orthopaedic Surgery
DX: M25.561 Pain in right knee (principal); T84.50XD Infection and inflammatory reaction due to unspecified internal joint prosthesis, subsequent encounter; G89.29 Other chronic pain; I25.119 Atherosclerotic heart disease of native coronary artery with unspecified angina pectoris; I10 Essential (primary) hypertension; I26.99 Other pulmonary embolism without acute cor pulmonale; M17.31 Unilateral post-traumatic osteoarthritis, right knee; M17.11 Unilateral primary osteoarthritis, right knee; F17.210 Nicotine dependence, cigarettes, uncomplicated; Z79.899 Other long term (current) drug therapy; Z98.890 Other specified postprocedural states; X58.XXXD Exposure to other specified factors, subsequent encounter

== ENCOUNTER → 2022-12-10 | Outpatient (CLI) | payer OTHER ==
[~2022-12-10] MED LIST changes: +LOVENOX120 MG/0.8 SC
== END | disposition home or self-care (01) ==
LOC: RESCLI 00:20
PROVIDERS: ATTEND Internal Medicine
DX: I82.511 Chronic embolism and thrombosis of right femoral vein (principal); G89.29 Other chronic pain; I10 Essential (primary) hypertension; M17.31 Unilateral post-traumatic osteoarthritis, right knee; I25.119 Atherosclerotic heart disease of native coronary artery with unspecified angina pectoris; F11.10 Opioid abuse, uncomplicated; G62.9 Polyneuropathy, unspecified; E55.9 Vitamin D deficiency, unspecified; D64.9 Anemia, unspecified; B99.9 Unspecified infectious disease; Z86.711 Personal history of pulmonary embolism; Z72.0 Tobacco use; Z95.5 Presence of coronary angioplasty implant and graft; Z79.82 Long term (current) use of aspirin; Z79.899 Other long term (current) drug therapy

== ENCOUNTER 2022-12-17 20:45 | Emergency (ER) | payer OTHER ==
[~2022-12-17] VITALS: Ht 182.8 cm; Wt 108.9 kg
== END 2022-12-17 22:19 | disposition short-term general hospital (02) ==
LOC: ED 20:46
DX: S51.812A Laceration without foreign body of left forearm, initial encounter (principal); I25.2 Old myocardial infarction; I10 Essential (primary) hypertension; Z86.718 Personal history of other venous thrombosis and embolism; E78.00 Pure hypercholesterolemia, unspecified; Z88.0 Allergy status to penicillin; Z90.89 Acquired absence of other organs; Z98.890 Other specified postprocedural states; Z95.5 Presence of coronary angioplasty implant and graft; F19.10 Other psychoactive substance abuse, uncomplicated; F17.210 Nicotine dependence, cigarettes, uncomplicated; W26.9XXA Contact with unspecified sharp object(s), initial encounter; Y93.89 Activity, other specified; Y92.89 Other specified places as the place of occurrence of the external cause; Y99.8 Other external cause status

== ENCOUNTER → 2023-03-17 | Outpatient (CLI) | payer OTHER | END | disposition home or self-care (01) | LOC: ORTHO 02:59 | PROVIDERS: ATTEND Orthopaedic Surgery | DX: M17.31 Unilateral post-traumatic osteoarthritis, right knee (principal); Z96.651 Presence of right artificial knee joint ==